=== PATIENT | female | born 1995 | race Caucasian/White ===

== ENCOUNTER → 2017-12-22 13:15 | Outpatient (REF) | payer MEDICAID, SELFPAY | LOC: LBN 13:15 | PROVIDERS: PCP Family Medicine; Visit Provider Midwife | DX: Z34.83 Encounter for supervision of other normal pregnancy, third trimester (principal); Z36.85 Encounter for antenatal screening for Streptococcus B | CPT/HCPCS: 87081 ==

== ENCOUNTER 2018-01-11 13:10 | Inpatient (IN) | payer MEDICAID, SELFPAY ==
[2018-01-11 17:10] LABS: HCT 36.3 % (36.0-46.0); HGB 12.3 g/dL (12.0-15.5); Mean Corp. HGB Concentration 33.9 g/dL (32.0-36.0); Mean Corpuscular Hemoglobin 28.7 pg (27.0-33.0); Mean Corpuscular Volume 84.8 fL (80-95); Mean Platelet Volume 10.3 fL (8.0-11.0); Platelet Count 207 x1000/uL (130-400); RBC 4.28 m/cumm (4.00-5.20); RBC Distribution Width 13.6 % (11.7-14.6); White Blood Cell Count 14.72 k/cumm (4.4-10.8)
[2018-01-11] MEDS: Bupivacaine 0.25% Pres-Free 10 ML VIAL EP (19:15)
[2018-01-11] MEDS: fentaNYL 100 MCG/2 ML VIAL EP (19:15)
[2018-01-12] MEDS: Ibuprofen 600 MG TAB PO ×2 (05:45→21:34)
[2018-01-12 09:14] LABS: HCT 34.1 % (36.0-46.0); HGB 11.5 g/dL (12.0-15.5); Mean Corp. HGB Concentration 33.7 g/dL (32.0-36.0); Mean Corpuscular Hemoglobin 29.2 pg (27.0-33.0); Mean Corpuscular Volume 86.5 fL (80-95); Mean Platelet Volume 10.5 fL (8.0-11.0); Platelet Count 196 x1000/uL (130-400); RBC 3.94 m/cumm (4.00-5.20); RBC Distribution Width 13.5 % (11.7-14.6)
== END 2018-01-13 09:05 | disposition home or self-care (01) | DRG 775 ==
PROVIDERS: Admitting Provider Midwife; PCP Family Medicine; Visit Provider Midwife
DX: O69.2XX0 Labor and delivery complicated by other cord entanglement, with compression, not applicable or unspecified (principal); Z37.0 Single live birth; Z3A.39 39 weeks gestation of pregnancy
CPT/HCPCS: 36415; 85027; 86850; 86900; 86901; G0378; J3010

== ENCOUNTER 2018-04-13 17:14 | Emergency (ER) | payer MEDICAID, SELFPAY ==
[2018-04-13 17:21] VITALS: BP 113/67; PULSE 80; RESP 16; TEMP 36.6; O2SAT 98
[2018-04-13] MEDS: predniSONE 20 MG TAB 40 MG PO (17:34)
[2018-04-13] MEDS: diphenhydrAMINE 25 MG CAP 50 MG PO (17:34)
--- NOTE | 2018-04-13 18:01 | ED.GENADUL_ITS ---
Discharge Plan Disposition Patient Disposition: HOME Condition: Fair Discharge Details Chief Complaint: Allergic Clinical Impression: Allergic reaction Reason For Visit: HIVES Primary Care Provider: Jay Taylor ED Provider: Qian Escalante Home Meds and New Rx's Prescriptions: New prednisone 20 mg tablet 40 mg PO DAILY Qty: 8 RF: 0 Continue mometasone [Nasonex] 17 GM spray,non-aerosol 17 gm NS QAM Qty: 1 RF: 0 diphenhydramine HCl [Benadryl] 25 mg Capsule 50 mg PO PRN PRNRF: 0 Discharge Instructions Instructions: General Allergic Reaction (ED) Additional Instructions: Encourage hydration. Prednisone as prescribed. You are given a dose tonight and are not due for another 24 hours. Even if symptoms improve, patient is doing entire course of steroids. You may continue with Benadryl tablet symptomatic management. May also use hydrocortisone cream to help with itch. If you develop shortness of breath, wheezing, difficulty breathing, intraoral rash or other new/worsening symptoms please seek care urgently once again. Otherwise, please follow-up with primary care in the next few days if symptoms have not completely resolved Referrals: Jay Taylor [Primary Care Provider] - Discharge Data Discharge Date/Time-TO BE ENTERED AT DEPARTURE: 04/13/18 18:58 Medical Decision Making Patient 22-year-old female presents today with chief complaint of allergic reaction. She reports that last night she tried a new type of protein bar. States that since then she has had intermittent hives. States that Benadryl has been helping with symptom medic management that once the Benadryl wears off , symptoms quickly return. States that initially the hives are located on the upper extremities but have been spreading. On exam, I am able to see hives, intermittently on her face, upper extremities, thighs and abdomen. Chest is clear. Lungs are clear. She denies any shortness of breath, difficulty breathing. No wheezes rales or rhonchi on exam. No intraoral lesions. Patient will be started on Benadryl and prednisone. Patient has 3 months status post vaginal delivery, no complications in the period. She is no longer breast-feeding. Denies any GI upset, no nausea, vomiting or diarrhea. No abdominal discomfort. No fevers or chills. Patient diagnosed with allergic reaction, started on prednisone here. She will continue on prednisone burst. We discussed possible side effects associated with steroids. We discussed new/worsening symptoms and when to seek care urgently once again. Advise follow-up with primary care in the next few days if symptoms have not improved. I advised that she may continue with the Benadryl and/or hydrocortisone cream to help with symptomatic management. All of her questions and concerns were addressed and she is in agreement this plan. Patient given first dose while here, tolerated meds well. Improved. HPI General Mode of arrival: ambulatory . Date/Time Provider Initiated Documentation: 04/13/18 17:16 . Limitations to Documentation: no limitations . Information obtained by: patient . History of Present Illness 22 year old F presents to the emergency department with the chief complaint of hives, described as moderate, and is localized to the face, abdomen, left, right, upper extremity and lower extremity. Patient reports no radiation. Patient started experiencing this day(s) (1) and it has been intermittent. other things that improve symptom(s), (benadryl) No exacerbating factors reported . Patient notes rash; denies chest pain, cough, fever/chills, headaches, nausea/vomiting and shortness of breath. Patient did receive the following treatments prior to arrival, other (benadryl) Related Data Home Medications Medication Instructions Recorded Confirmed mometasone [Nasonex] 17 gm NS QAM #1 spray.pump 07/29/15 06/20/16 diphenhydramine HCl [Benadryl] 50 mg PO PRN PRN 04/13/18 04/13/18 prednisone 40 mg PO DAILY #8 tab 04/13/18 Previous Rx's Medication Instructions Recorded mometasone [Nasonex] 17 gm NS QAM #1 spray.pump 07/29/15 prednisone 40 mg PO DAILY #8 tab 04/13/18 Allergies Allergy/AdvReac Type Severity Reaction Status Date / Time codeine Allergy Severe Anaphylaxsi Unverified 04/13/18 17:25 s General Stated Complaint: Allergic LAWRENCE: 3 Review of Systems Constitutional Reports as per HPI and Denies headache(s) Eyes Reports as per HPI, Denies eye discharge and Denies irritation ENT Denies headache(s) Cardiovascular Reports as per HPI, Denies chest pain and Denies dyspnea Respiratory Denies cough, Denies dyspnea, Denies stridor and Denies wheezing Gastrointestinal Reports as per HPI, Denies abdominal pain, Denies change in bowel habits, Denies nausea and Denies vomiting Integumentary/Breasts Reports as per HPI and Reports pruritus Neurologic Denies headache(s) Allergic/Immunologic Denies wheezing PFSH Family History Mother Diabetes Alcohol abuse Brother Asthma Tonsillectomy Family History Mother Diabetes Alcohol abuse Brother Asthma Social History Smoking/Tobacco Use Status: Current every day Surgical History Tonsillectomy Social History Smoking/Tobacco Use Status: Current every day Exam Const General: cooperative, healthy appearing, comfortable, no acute distress, well developed and well groomed Nutritional Appearance: average body habitus and well nourished Orientation: alert and awake HENNY Head: normal to inspection, normocephalic and atraumatic Ears: hearing grossly normal bilaterally General nose exam: external nose normal and nares normal Face and sinus: face symmetric and no other (patient has urticarial rash on cheeks) Mouth: oral mucosae normal, lip normal, tongue normal, oropharynx normal and moist mucous membranes Teeth and gingiva: dentition normal Throat: posterior oropharynx normal, tonsils normal and uvula midline Eyes General: appearance normal, both eyes and all related structures Neck Neck: normal visual inspection, full ROM, no lymphadenopathy and no meningeal signs Chest Chest: normal inspection of the chest Resp Effort & Inspection: normal respiratory effort, able to speak in complete sentences and no respiratory distress Auscultation: clear to auscultation bilaterally, no rales, no rhonchi and no wheezes Cardio Rate: regular rate Rhythm: regular rhythm Heart Sounds: S1 normal and S2 normal GI Inspection: abnormal to inspection (urticarial rash anterior abdomen) Palpation: soft, no hepatosplenomegaly and nontender Auscultation: normal bowel sounds Back/Spine/Pelvis Thoracic/Lumbar Spine: thoracic and lumbar spine normal to inspection Skin Rashes: rashes noted (patient has hives to bilateral upper extremities, proximal to the elbows. This same rash is also noted on abdomen. Chest is clear. ) Neuro General: alert and awake Cognition: normal cognition Speech: speech normal Gait: normal gait Extrem General: abnormal to inspection (as above) Psych Appearance: grossly normal and well kempt Mental Status: mental status grossly normal Speech and Movement: speech and movement normal Course Vital Signs Temperature 36.6 C 04/13/18 17:21 Pulse 80 04/13/18 17:21 Respiratory Rate 16 04/13/18 17:21 Blood Pressure 113/67 04/13/18 17:21 Pulse Oximetry 98 04/13/18 17:21 Temperature 36.6 C 04/13/18 17:21 Temperature Source Temporal Artery Scan 04/13/18 17:21 Pulse 80 04/13/18 17:21 Respiratory Rate 16 04/13/18 17:21 Respiratory Effort 04/13/18 17:28 Respiratory Pattern Normal 04/13/18 17:28 Blood Pressure 113/67 04/13/18 17:21 Pulse Oximetry 98 04/13/18 17:21 Oxygen Delivery Method Room Air 04/13/18 17:21 Oxygen Flow Rate 0 04/13/18 17:21
[2018-04-13 18:55] VITALS: BP 115/67; PULSE 71; RESP 16; O2SAT 97
== END 2018-04-13 18:58 | disposition home or self-care (01) ==
LOC: ER 18:14
PROVIDERS: Emergency Provider Physician Assistant; PCP Family Medicine
DX: T78.1XXA Other adverse food reactions, not elsewhere classified, initial encounter (principal); L50.0 Allergic urticaria
CPT/HCPCS: 99283; J7512

== ENCOUNTER 2018-07-21 14:26 | Outpatient (REF) | payer MEDICAID, SELFPAY ==
--- NOTE | 2018-07-21 13:10 | PAPFT_PTH ---
PATIENT: Stacey Barnes LOC: [facility] U#:[id number] AGE/SX: 22/F ROOM: RE07/21/[address]: Karen Wilcox NP : 1995 BED: DIS: 07/21/2018 SPEC #: [id number] RECD: 07/21/18 16:44 STATUS: NANO JUAREZ #: [id number] SANDRA: 07/21/18 13:[address]: Karen Wilcox NP DEPT: [facility] Cytology RECD BY: Kane Rosenthal ENTERED: 07/21/18 16:44 SP TYPE: PAPFT OTHR DR: Jay Taylor Tissues: 1 - CX/ENDOCX FOR PAP SMEARS Procedures: PAP THIN PREP/UVM Screening HPV DNA PROBE Comments: [id number]
== END 2018-07-21 14:46 ==
LOC: LBN 14:26
PROVIDERS: PCP Family Medicine; Visit Provider Nurse Practitioner Women's Health
DX: Z12.4 Encounter for screening for malignant neoplasm of cervix (principal)
CPT/HCPCS: 88142; 87624

== ENCOUNTER 2019-04-20 14:42 | Outpatient (REF) | payer MEDICAID, SELFPAY ==
[2019-04-21 15:16] LABS: Chlamydia Result Negative (Negative)
[2019-04-25 11:33] LABS: GC Result Negative (Negative)
== END 2019-04-20 15:02 ==
LOC: LBN 14:42
PROVIDERS: PCP Family Medicine; Visit Provider Nurse Practitioner Family
DX: Z11.3 Encounter for screening for infections with a predominantly sexual mode of transmission (principal)
CPT/HCPCS: 87491; 87591

== ENCOUNTER 2019-08-14 14:20 | Outpatient (REF) | payer MEDICAID, SELFPAY ==
--- NOTE | 2019-08-14 13:00 | PAPFT_PTH ---
PATIENT: Stacey Barnes LOC: [facility] U#:[id number] AGE/SX: 24/F ROOM: RE08/14/[address]: MYLES Farrar : 1995 BED: DIS: 08/14/2019 SPEC #: [id number] RECD: 08/14/19 17:07 STATUS: NANO JUAREZ #: [id number] SANDRA: 08/14/19 13:[address]: Jaylene Villasenor DEPT: [facility] Cytology RECD BY: Karne Wilson ENTERED: 08/14/19 17:07 SP TYPE: PAPFT OTHR DR: Jay Taylor Tissues: 1 - CX/ENDOCX FOR PAP SMEARS Procedures: PAP THIN PREP/UVM Screening Comments: [id number]
== END 2019-08-14 14:40 ==
LOC: LBN 14:20
PROVIDERS: PCP Family Medicine; Visit Provider Nurse Practitioner Family
DX: Z12.4 Encounter for screening for malignant neoplasm of cervix (principal)
CPT/HCPCS: 88142

== ENCOUNTER 2020-01-08 15:18 | Outpatient (REF) | payer MEDICAID, SELFPAY ==
[2020-01-08 19:19] LABS: HGB 14.2 g/dL (11.2-15.7); MCH 28.8 pg (27.0-33.0); MCHC 33.8 % (32.0-36.0); MCV 85.2 fL (80-95); Platelet Count 235 10^3/uL (130-400); RBC 4.93 10^6/uL (3.93-5.22); RDW 12.8 % (11.7-14.6); RDW-SD 39.8 fL
[2020-01-08 19:42] LABS: ALT 17 U/L (14-59); AST 13 U/L (15-37); Albumin 4.1 g/dL (3.4-5.0); Alkaline Phosphatase 68 U/L (46-116); Anion Gap 10.5 mmol/L (3-11); BUN 10 mg/dL (7-18); Bilirubin, Total 0.3 mg/dL (0.2-1.0); CO2 23.5 mmol/L (21.0-32.0); CREATININE 0.75 mg/dL (0.55-1.02); Calcium 9.2 mg/dL (8.5-10.1); Chloride 105 mmol/L (98-107); Glucose 88 mg/dL (74-106); Potassium 4.1 mmol/L (3.5-5.1); Sodium 139 mmol/L (136-145); TSH (W/Ref FT4) 1.03 uIU/mL (0.36-3.74); Total Protein 6.9 g/dL (6.4-8.2)
== END 2020-01-08 15:38 ==
LOC: NCHCN 15:18
PROVIDERS: PCP Family Medicine; Visit Provider Nurse Practitioner
DX: R63.4 Abnormal weight loss (principal); I95.9 Hypotension, unspecified
CPT/HCPCS: 80053; 85027; 84443

== ENCOUNTER 2020-02-13 14:56 | Outpatient (REF) | payer MEDICAID, SELFPAY ==
[2020-02-14 15:16] LABS: Chlamydia Result Negative (Negative); GC Result Negative (Negative)
== END 2020-02-13 15:16 ==
LOC: LBN 14:56
PROVIDERS: PCP Family Medicine; Visit Provider Nurse Practitioner Family
DX: Z11.3 Encounter for screening for infections with a predominantly sexual mode of transmission (principal)
CPT/HCPCS: 87491; 87591

== ENCOUNTER 2021-01-18 05:31 | Emergency (ER) | payer MEDICAID, SELFPAY ==
--- NOTE | 2021-01-18 05:34 | ED.GENADUL_ITS ---
Discharge Plan Disposition Patient Disposition: HOME Condition: Good Discharge Details Clinical Impression: Dental infection Primary Care Provider: Jay Taylor ED Provider: Chaim Small Redkey Meds and New Rx's Prescriptions: New amoxicillin 500 mg capsule 500 mg PO Q8H Qty: 30 RF: 0 Continued mometasone [Nasonex] 50 mcg/actuation spray,non-aerosol 1 spray NS QAM PRN (Reason: allergy symptoms) RF: 0 Discharge Instructions Instructions: Dental Abscess (ED) Additional Instructions: Take antibiotic as directed and follow-up with dentist next week. Alternate ibuprofen with acetaminophen as we discussed. May use benzocaine gel as directed every 3-4 hours to help with pain. Return to ED for increased facial pain/swelling/redness, difficulty breathing, inability to swallow. Medical Decision Making Patient with onset of dental pain involving the right upper molar region. She has a large cavity present and has a focal percussion tenderness. We will continue amoxicillin. We will also have her continue ibuprofen and acetaminophen. Short-term 20% benzocaine applied to the gumline above the tooth should help with her pain. Follow-up with dentist next week. Return to ED for increasing facial pain/swelling/redness, difficulty breathing, inability to swa llow, other concerns. HPI General Mode of arrival: ambulatory . Date/Time Provider Initiated Documentation: 01/18/21 05:33 . Limitations to Documentation: no limitations . Information obtained by: patient and RN notes reviewed . HPI Narrative: Patient presents to ED with onset of right upper dental pain early this morning. Patient has had dental problems in the past. In fact, she is due for surgery next month in the left upper teeth. She did take a dose of amoxicillin as well as Motrin before coming in. Still has significant pain. Denies fever. [place] fine before going to bed. Has no difficulty breathing or swallowing. Related Data Home Medications Medication Instructions Recorded Confirmed mometasone 50 mcg/actuation nasal 1 spray NS QAM PRN gm 04/20/19 01/18/21 spray amoxicillin 500 mg PO Q8H #30 cap 01/18/21 Previous Rx's Medication Instructions Recorded amoxicillin 500 mg PO Q8H #30 cap 01/18/21 Allergies Allergy/AdvReac Type Severity Reaction Status Date / Time codeine Allergy Severe Anaphylaxsi Verified 01/18/21 05:43 s General LAWRENCE: 3 Review of Systems Narrative: As documented in HPI otherwise negative as below. Const: no fever, chills, weakness Resp: no cough, SOB, pleuritic pain CV: no CP, diaphoresis, edema, syncope GI: no abdominal pain, nausea, vomiting, diarrhea Neuro: no headache, numbness, focal weakness, confusion [facility] Medical History No significant past medical history Surgical History Tonsillectomy age 15 Family History Mother Diabetes Alcohol abuse Brother Asthma Social History Smoking/Tobacco Use Status: Current every day Tobacco Type: cigarettes Tobacco: How many years used: 9 Quit status: has quit before Second Hand Exposure: Yes Smoking risk assessment performed?: Yes Alcohol Intake: never Drug use: Never Substance use type: does not use Seatbelt use: always Do you feel safe at home: Yes Do you feel safe in your relationship?: Yes Female Reproductive History Menstrual control method: other ( has vasectomy) History History 4 Para 3 Hx # Term Pregnancies 3 Multiple births Hx # Pregnancies Ectopic pregnancies AB induced Hx Number of Living Children AB spontaneous 1 Exam Narrative Exam Narrative: Const: WDWN female in NAD. HEENT: NC/AT. Normal facial exam. Large cavity first upper right molar with apical percussion tenderness present. No gingival or oral abscess noted. Eyes: Normal conjunctiva and sclera. Neck: Supple. Trachea midline. Lungs: Normal respiratory effort. Neuro: A+O x 3. Normal speech, mentation, gait. Cranial nerves II - XII grossly intact. No gross motor or sensory deficit. Skin: Warm and dry without erythema.
[2021-01-18 05:36] VITALS: BP 119/72; PULSE 67; RESP 18; TEMP 36.8; O2SAT 97
[2021-01-18] MEDS: Benzocaine 20% Gel 30 GM JAR MM (05:51)
== END 2021-01-18 06:02 | disposition home or self-care (01) ==
PROVIDERS: Emergency Provider Emergency Medicine; PCP Family Medicine
DX: K04.7 Periapical abscess without sinus (principal)
CPT/HCPCS: 99283

== ENCOUNTER 2021-08-21 11:23 | Outpatient (REF) | payer MEDICAID, SELFPAY ==
--- NOTE | 2021-08-21 10:30 | PAPFT_PTH ---
PATIENT: Stacey Barnes LOC: [facility] U#:[id number] AGE/SX: 26/F ROOM: RE08/21/[address]: MYLES Farrar : 1995 BED: DIS: 08/21/2021 SPEC #: [id number] RECD: 08/21/21 12:53 STATUS: NANO REQ #: [id number] SANDRA: 08/21/21 10:[address]: Jaylene Villasenor DEPT: [facility] Cytology RECD BY: Karen Wilson ENTERED: 08/21/21 12:53 SP TYPE: PAPFT OTHR DR: Jay Taylor Tissues: 1 - CX/ENDOCX FOR PAP SMEARS Procedures: PAP THIN PREP/UVM Screening HPV DNA PROBE Comments: [id number]
[2021-08-23 13:46] LABS: Chlamydia Result Negative (Negative); GC Result Negative (Negative)
== END 2021-08-21 11:24 | disposition home or self-care (01) ==
LOC: LBN 11:23
PROVIDERS: PCP Family Medicine; Visit Provider Nurse Practitioner Family
DX: Z11.3 Encounter for screening for infections with a predominantly sexual mode of transmission (principal); Z12.4 Encounter for screening for malignant neoplasm of cervix; R87.610 Atypical squamous cells of undetermined significance on cytologic smear of cervix (ASC-US); R87.810 Cervical high risk human papillomavirus (HPV) DNA test positive; Z11.51 Encounter for screening for human papillomavirus (HPV)
CPT/HCPCS: 87491; 87591; 88142; 87624

== ENCOUNTER 2021-09-25 12:27 | Outpatient (REF) | payer MEDICAID, SELFPAY ==
--- NOTE | 2021-09-25 11:30 | ENDO_PTH ---
PATIENT: Stacey Barnes LOC: [facility] U#:[id number] AGE/SX: 26/F ROOM: RE09/25/[address]: Gricelda Myers DO : 1995 BED: DIS: 09/25/2021 SPEC #: [id number] RECD: 09/25/21 12:57 STATUS: NANO RE #: [id number] SANDRA: 09/25/21 11:[address]: Gricelda Myers DEPT: Surgical [facility]imen RECD BY: Karen Wilson ENTERED: 09/25/21 12:57 SP TYPE: Endo OTHR DR: Jay Taylor Tissues: 1 - ENDOCERVICAL BX/CURRETTE 2 - CERVICAL BIOPSY Procedures: GROSS AND MICRO LEVEL 4 Comments: [id number]
== END 2021-09-25 12:28 | disposition home or self-care (01) ==
LOC: LBN 12:27
PROVIDERS: PCP Family Medicine; Visit Provider Obstetrics & Gynecology
DX: N72 Inflammatory disease of cervix uteri (principal); N88.8 Other specified noninflammatory disorders of cervix uteri; R87.610 Atypical squamous cells of undetermined significance on cytologic smear of cervix (ASC-US); R87.810 Cervical high risk human papillomavirus (HPV) DNA test positive
CPT/HCPCS: 88305

== ENCOUNTER 2022-09-09 11:18 | Outpatient (REF) | payer MEDICAID, SELFPAY ==
--- NOTE | 2022-09-09 11:10 | PAPFT_PTH ---
PATIENT: Stacey Barnes LOC: [facility] U#:[id number] AGE/SX: 27/F ROOM: RE09/09/[address]: Gricelda Myers DO : 1995 BED: DIS: 09/09/2022 SPEC #: [id number] RECD: 09/09/22 12:56 STATUS: NANO REQ #: [id number] SANDRA: 09/09/22 11:[address]: Gricelda Myers DEPT: [facility] Cytology RECD BY: Karen Wilson ENTERED: 09/09/22 12:56 SP TYPE: PAPFT OTHR DR: Jay Taylor Tissues: 1 - CX/ENDOCX FOR PAP SMEARS Procedures: PAP THIN PREP/UVM Screening HPV DNA PROBE Comments: [id number]
== END 2022-09-09 11:19 | disposition home or self-care (01) ==
LOC: LBN 11:18
PROVIDERS: PCP Family Medicine; Visit Provider Obstetrics & Gynecology
DX: Z12.4 Encounter for screening for malignant neoplasm of cervix (principal); Z11.51 Encounter for screening for human papillomavirus (HPV); R87.810 Cervical high risk human papillomavirus (HPV) DNA test positive
CPT/HCPCS: 88142; 87624

== ENCOUNTER 2022-10-26 07:22 | Emergency (ER) | payer MEDICAID, SELFPAY ==
[2022-10-26 07:27] VITALS: BP 117/69; PULSE 61; RESP 16; TEMP 36.9; O2SAT 99
--- NOTE | 2022-10-26 07:38 | ED.GENADUL_ITS ---
Discharge Plan Disposition Patient Disposition: Home Condition: Stable Discharge Details Clinical Impression: Dental infection Primary Care Provider: Jay Taylor ED Provider: Gerardo Wilcox Home Meds and New Rx's Prescriptions: New amoxicillin 500 mg tablet 500 mg PO BID Qty: 20 0RF Continued mometasone [Nasonex] 50 mcg/actuation spray,non-aerosol 1 spray NS QAM PRN (Reason: allergy symptoms) Rx Instructions: 2 sprays each nostril once daily Discharge Instructions Additional Instructions: You can take 1000mg tylenol and 600mg ibuprofen every 6 hours as needed follow up with a dentist as soon as possible If you have fevers, inability to swallow liquids or feel more ill return to the emergency department Medical Decision Making 27 yo female who denies significant pmhx comes in with right upper posterior molar pain for 3 days. Denies fevers, dyspnea, difficulty swallowing. States has had issues with this tooth before due to having an erosion. She arrives stable and appears well in no distress. She is swallowing and breathing normally. No submandibular swelling, no facial swelling, normal posterior pharynx with midline uvula, no pain over the hyoid or restricted neck movements. She has an erosion on her right posterior upper molar, no visible abscess and is tender to percussion. No findings to suggest elier's retropharyngeal abscess, epiglotitis, peritonsilar abscess. Will start on amoxicillin and advised to f/u with dentist, return precautions given Differential Diagnosis Differential Diagnosis: pulpitis, dental caries, abscess HPI General Mode of arrival: ambulatory . Date/Time Provider Initiated Documentation: 10/26/22 07:32 . Limitations to Documentation: no limitations . Information obtained by: patient . History of Present Illness 27 year old F presents to the emergency department with the chief complaint of dental pain, described as moderate, Patient started experiencing this day(s) (3) and it has been constant. No relieving factors improve symptom(s), No exacerbating factors reported . Patient notes no other symptoms.. Related Data Home Medications Medication Instructions Recorded Confirmed mometasone 50 mcg/actuation nasal 1 spray NS QAM PRN allergy symptoms 04/20/19 01/18/21 spray (Nasonex) amoxicillin 500 mg tablet 500 mg PO BID #20 tabs 10/26/22 Previous Rx's Medication Instructions Recorded amoxicillin 500 mg tablet 500 mg PO BID #20 tabs 10/26/22 Allergies Allergy/AdvReac Type Severity Reaction Status Date / Time codeine Allergy Severe Anaphylaxsi Verified 10/26/22 07:30 s General Stated Complaint: DentalOral LAWRENCE: 4 Review of Systems All systems reviewed & are unremarkable except as noted in HPI and below Constitutional Constitutional: Denies chills, Denies fever(s) and Denies weakness ENT Ears, Nose, Mouth, and Throat: Denies change in voice Cardiovascular Cardiovascular: Denies chest pain and Denies dyspnea Respiratory Respiratory: Denies cough and Denies dyspnea Gastrointestinal Gastrointestinal: Denies abdominal pain, Denies nausea and Denies vomiting Musculoskeletal Musculoskeletal: Denies joint swelling Neurologic Neurologic: Denies weakness PFSH All Active Problems (Updated 10/26/22 @ 07:54 by Gerardo Wilcox MD) Well woman exam with routine gynecological exam (Acute) ASCUS with positive high risk HPV (Acute) Colpo 09/28, negative Pap 09/29. Dental infection (Acute) Medical History No significant past medical history Surgical History Tonsillectomy age 15 Family History Mother Diabetes Alcohol abuse Brother Asthma Social History Smoking/Tobacco Use Status: Current every day Tobacco Type: cigarettes Tobacco: How many years used: 9 Quit status: has quit before Second Hand Exposure: Yes Smoking risk assessment performed?: Yes Alcohol Intake: current Alcohol Intake frequency: holidays/special occasions only Drug use: Daily Substance use type: marijuana Seatbelt use: always Do you feel safe at home: Yes Do you feel safe in your relationship?: Yes Female Reproductive History Menstrual control method: other ( has vasectomy) History History 4 Para 3 Hx # Term Pregnancies 3 Multiple births Hx # Pregnancies Ectopic pregnancies AB induced Hx Number of Living Children AB spontaneous 1 Exam Const General: no acute distress Orientation: alert HENMT Head: normal to inspection Ears: external ears normal General nose exam: external nose normal Mouth: moist mucous membranes Eyes General: appearance normal, both eyes and all related structures Neck Neck: normal visual inspection Resp Effort & Inspection: normal respiratory effort and able to speak in complete sentences Cardio Rate: regular rate Skin General skin exam: no rashes or lesions noted Neuro General: patient alert and patient oriented x3 Extrem General: normal to inspection Psych Mental Status: mental status grossly normal Course Vital Signs Vital signs: Vital Signs Temperature 36.9 C 10/26/22 07:27 Pulse 61 10/26/22 07:27 Respiratory Rate 16 10/26/22 07:27 Blood Pressure 117/69 10/26/22 07:27 Pulse Oximetry 99 10/26/22 07:27 Temperature 36.9 C 10/26/22 07:27 Temperature Source Temporal Artery Scan 10/26/22 07:27 Pulse 61 10/26/22 07:27 Respiratory Rate 16 10/26/22 07:27 Respiratory Effort Normal, Non-Labored 10/26/22 07:31 Blood Pressure 117/69 10/26/22 07:27 Blood Pressure Position Sitting 10/26/22 07:27 Pulse Oximetry 99 10/26/22 07:27 Oxygen Delivery Method Room Air 10/26/22 07:27 Oxygen Flow Rate 0 10/26/22 07:27
[2022-10-26] MEDS: Benzocaine 20% Gel 30 GM JAR MM (07:50)
[2022-10-26] MEDS: Amoxicillin 500 MG CAP PO (07:50)
== END 2022-10-26 08:01 | disposition home or self-care (01) ==
PROVIDERS: Emergency Provider Emergency Medicine; PCP Family Medicine
DX: K04.7 Periapical abscess without sinus (principal)
CPT/HCPCS: 99283; 99284

== ENCOUNTER 2022-11-04 19:32 | Emergency (ER) | payer MEDICAID, SELFPAY ==
[2022-11-04 19:39] VITALS: BP 121/71; PULSE 63; RESP 20; TEMP 36.2; O2SAT 100
--- NOTE | 2022-11-04 20:34 | ED.GENADUL_ITS ---
Discharge Plan Disposition Patient Disposition: Home Discharge Details Clinical Impression: Pain due to dental caries Primary Care Provider: Jay Taylor ED Provider: Mitra Smith Home Meds and New Rx's Prescriptions: Continued mometasone [Nasonex] 50 mcg/actuation spray,non-aerosol 1 spray NS QAM PRN (Reason: allergy symptoms) Rx Instructions: 2 sprays each nostril once daily amoxicillin 500 mg tablet 500 mg PO BID Qty: 20 0RF Discharge Instructions Instructions: Dental Caries (ED), Toothache (ED) Additional Instructions: Use the HurriCaine gel to 3 times daily as needed. Please take Tylenol or Ibuprofen with food every 4-6 hours as needed for pain and swelling. Finish the antibiotics as previously prescribed. You do still need to see a dentist. Follow up with primary care provider in 3-5 days. Return to ED sooner if any worsening or concerns. Increase oral fluids. Referrals: Jay Taylor [Primary Care Provider] - 5 days Medical Decision Making 27-year-old female presents to the ER with chief complaint of dental pain. Was seen a week ago and was placed on amoxicillin for same complaint was unable to get in with a dentist. She does have a plastic type veneer noted on her upper molars she does have an area of erosion in dental carry to her right upper molar, no surrounding abscess or drainage or area of fluctuance. No posterior oropharynx swelling or signs of infection. She is speaking in full sentences. She reports has been taking ibuprofen with little to no relief. She has 2 days left of the amoxicillin. Benzocaine HurriCaine gel applied with instructions on use. We will give dental resource list have patient follow-up with dentist. I do not feel that extending antibiotics is needed at this time. No evidence of abscess or area of fluctuance. Patient was given dental resources and home care. This text was generated using [employer]ation system, please disregard any oddities of phrase or misspellings. Medical Records Medical records reviewed: Yes I reviewed the patient's medical records. HPI General Mode of arrival: ambulatory . Date/Time Provider Initiated Documentation: 11/04/22 19:50 . Limitations to Documentation: no limitations . Information obtained by: patient, RN notes reviewed and old records reviewed . HPI Narrative: 27-year-old female presents to the ER with chief complaint of dental pain. Was seen a week ago and was placed on amoxicillin for same complaint was unable to get in with a dentist. She does have a plastic type veneer noted on her upper molars she does have an area of erosion in dental carry to her right upper molar, no surrounding abscess or drainage or area of fluctuance. No posterior oropharynx swelling or signs of infection. She is speaking in full sentences. She reports has been taking ibuprofen with little to no relief. She has 2 days left of the amoxicillin. Related Data Home Medications Medication Instructions Recorded Confirmed mometasone 50 mcg/actuation nasal 1 spray NS QAM PRN allergy symptoms 04/20/19 01/18/21 spray (Nasonex) amoxicillin 500 mg tablet 500 mg PO BID #20 tabs 10/26/22 Previous Rx's Medication Instructions Recorded amoxicillin 500 mg tablet 500 mg PO BID #20 tabs 10/26/22 Allergies Allergy/AdvReac Type Severity Reaction Status Date / Time codeine Allergy Severe Anaphylaxsi Verified 10/26/22 07:30 s General Stated Complaint: DentalOral LAWRENCE: 4 Review of Systems All systems reviewed & are unremarkable except as noted in HPI and below ENT Ears, Nose, Mouth, and Throat: Reports dental pain PFSH All Active Problems (Updated 11/04/22 @ 20:39 by Mitra Smith NP) Pain due to dental caries (Acute) Well woman exam with routine gynecological exam (Acute) ASCUS with positive high risk HPV (Acute) Colpo 09/28, negative Pap 09/29. Dental infection (Acute) Medical History No significant past medical history Surgical History Tonsillectomy age 15 Family History Mother Diabetes Alcohol abuse Brother Asthma Social History Smoking/Tobacco Use Status: Current every day Tobacco Type: cigarettes Tobacco: How many years used: 9 Quit status: has quit before Second Hand Exposure: Yes Smoking risk assessment performed?: Yes Alcohol Intake: current Alcohol Intake frequency: holidays/special occasions only Drug use: Daily Substance use type: marijuana Seatbelt use: always Do you feel safe at home: Yes Do you feel safe in your relationship?: Yes Female Reproductive History Menstrual control method: other ( has vasectomy) History History 4 Para 3 Hx # Term Pregnancies 3 Multiple births Hx # Pregnancies Ectopic pregnancies AB induced Hx Number of Living Children AB spontaneous 1 Exam HENMT Ears: external ears normal and TM's normal bilaterally Mouth: oral mucosae normal, lip normal and tongue normal Teeth and gingiva: caries and fair dentition Teeth image: 1. Dental carry noted Throat: posterior oropharynx normal, tonsils normal, uvula midline and tonsils absent Course Vital Signs Vital signs: Vital Signs Temperature 36.2 C L 11/04/22 19:39 Pulse 63 11/04/22 19:39 Respiratory Rate 20 11/04/22 19:39 Blood Pressure 121/71 11/04/22 19:39 Pulse Oximetry 100 11/04/22 19:39 Temperature 36.2 C L 11/04/22 19:39 Temperature Source Temporal Artery Scan 11/04/22 19:39 Pulse 63 11/04/22 19:39 Respiratory Rate 20 11/04/22 19:39 Blood Pressure 121/71 11/04/22 19:39 Blood Pressure Position Sitting 11/04/22 19:39 Pulse Oximetry 100 11/04/22 19:39 Oxygen Delivery Method Room Air 11/04/22 19:39 Oxygen Flow Rate 0 11/04/22 19:39 Pain Level 10 11/04/22 19:39
[2022-11-04] MEDS: Benzocaine 20% Gel 30 GM JAR MM (20:48)
== END 2022-11-04 20:56 | disposition home or self-care (01) ==
PROVIDERS: Emergency Provider Registered Nurse Emergency; PCP Family Medicine
DX: K02.9 Dental caries, unspecified (principal)
CPT/HCPCS: 99283

== ENCOUNTER 2023-03-11 09:47 | Outpatient (REF) | payer MEDICAID, SELFPAY ==
[2023-03-12 14:41] LABS: Chlamydia Result Negative (Negative); GC Result Negative (Negative)
== END 2023-03-11 09:48 | disposition home or self-care (01) ==
LOC: LBN 09:47
PROVIDERS: PCP Family Medicine; Visit Provider Advanced Practice Midwife
DX: N76.0 Acute vaginitis (principal)
CPT/HCPCS: 87491; 87591; 87480; 87510; 87660

== ENCOUNTER 2023-12-20 10:33 | Emergency (ER) | payer MEDICAID, SELFPAY ==
[2023-12-20 10:36] VITALS: BP 101/70; PULSE 76; RESP 16; TEMP 36.6; O2SAT 96
--- NOTE | 2023-12-20 11:05 | ED.GENADUL_ITS ---
Discharge Plan Disposition Patient Disposition: Home Condition: Stable Discharge Details Clinical Impression: Dental infection Primary Care Provider: Flaquita Bacon ED Provider: Jag Person Home Meds and New Rx's Prescriptions: New penicillin V potassium 500 mg tablet 500 mg PO QID Qty: 55 0RF ibuprofen 600 mg tablet 600 mg PO Q8H PRNQty: 60 0RF Discontinued mometasone [Nasonex] 50 mcg/actuation spray,non-aerosol 1 spray NS QAM PRN (Reason: allergy symptoms) Rx Instructions: 2 sprays each nostril once daily chlorhexidine gluconate 0.12 % mouthwash 15 ml mucous membrane BID Qty: 1200 0RF Rx Instructions: swish and spit 15ml 2x daily x10 days Discharge Instructions Instructions: Tooth Abscess ED Additional Instructions: Please take antibiotic as prescribed. Please take ibuprofen as prescribed. Please take acetaminophen (tylenol) - 650mg every 6 hours by mouth as needed for pain. Please follow-up with your dentist. Call today. Return to the ER immediately for any worsening or new concerning symptoms. Referrals: Flaquita Bacon, ARTIST'S REPRESENTATIVE [Primary Care Provider] - Discharge Data Discharge Date/Time-TO BE ENTERED AT DEPARTURE: 12/20/23 12:24 HPI General Mode of arrival: ambulatory . Date/Time Provider Initiated Documentation: 12/20/23 11:05 . Limitations to Documentation: no limitations . Information obtained by: patient . HPI Narrative: 8-year-old female here with recurrent dental infection left upper molar. No associated facial swelling. no fever. Related Data Home Medications ?Medication ?Instructions ?Recorded ?Confirmed ibuprofen 600 mg tablet 600 mg PO Q8H PRN #60 tabs 12/20/23 12/22/23 penicillin V potassium 500 mg 500 mg PO QID #55 tabs 12/20/23 12/22/23 tablet Previous Rx's ?Medication ?Instructions ?Recorded ibuprofen 600 mg tablet 600 mg PO Q8H PRN #60 tabs 12/20/23 penicillin V potassium 500 mg 500 mg PO QID #55 tabs 12/20/23 tablet Allergies Allergy/AdvReac Type Severity Reaction Status Date / Time codeine Allergy Severe Anaphylaxsi Verified 12/22/23 15:59 s General Stated Complaint: DentalOral LAWRENCE: 4 Review of Systems All systems reviewed & are unremarkable except as noted in HPI and below ENT Ears, Nose, Mouth, and Throat: Denies tongue swelling Allergic/Immunologic Allergic/Immunologic: Denies tongue swelling Exam HENMT Face and sinus: other (mild left cheek swelling) Teeth and gingiva: poor dentition and other (no palpable abscess, no fluctuance, no swelling) Throat: posterior oropharynx normal Eyes EOM: EOM intact bilaterally Neck Neck: normal visual inspection, no lymphadenopathy and trachea midline Cardio Rate: regular rate Rhythm: regular rhythm Course Vital Signs Vital signs: Vital Signs Temperature 36.6 C 12/20/23 10:36 Pulse 76 12/20/23 10:36 Respiratory Rate 16 12/20/23 10:36 Blood Pressure 101/70 12/20/23 10:36 Pulse Oximetry 96 12/20/23 10:36 Temperature 36.6 C 12/20/23 10:36 Pulse 76 12/20/23 10:36 Respiratory Rate 16 12/20/23 10:36 Respiratory Effort Normal 12/20/23 10:42 Blood Pressure 101/70 12/20/23 10:36 Pulse Oximetry 96 12/20/23 10:36 Pain Level 10 12/20/23 10:42 Medical Decision Making 28-year-old female here with recurrent dental infection left upper molar. Significant decay of the tooth. No palpable abscess amenable to drainage. Patient is afebrile. Plan to treat with periapical dental block bupivacaine, Tylenol and oxycodone here, penicillin. Patient will follow-up with her dentist. Usual and customary discharge instructions were reviewed. Quality:SDOH Health Related Social Needs: Health related social needs details N/A PFSH All Active Problems (Updated 12/20/23 @ 11:09 by Jag Person MD) Dental infection (Acute) Marital problem (Acute ~2022) Low back pain (Chronic) uses THC Nicotine use disorder (Chronic) Started at 13yo; 5-6 cigs/day; thinking about quitting ( has COPD) ASCUS with positive high risk HPV (Acute) [facility] PATIENT SITTER Colpo 09/28, negative Pap 09/29. Medical History (Updated 12/20/23 @ 11:09 by Jag Person MD) Dysthymic disorder h/o hydroxyzine & fluoxetine History of kidney stones Tinea versicolor chest--RX ketoconazole & resolved Chronic bronchitis Low blood pressure Screen for STD (sexually transmitted disease) Human papillomavirus Vaginal discharge Dental infection (~01/2021) History of ADHD Surgical History Tonsillectomy age 15 Family History (Updated 09/20/23 @ 09:58 by Flaquita Bacon NP) Mother Diabetes Alcohol abuse Brother Asthma Social History Smoking/Tobacco Use Status: Current every day Tobacco Type: cigarettes Tobacco: How many years used: 9 Quit status: considering quitting Second Hand Exposure: No Smoking risk assessment performed?: Yes Alcohol Intake: current Alcohol Intake frequency: holidays/special occasions only Drug use: Daily Substance use type: marijuana Adopted: No Caregiver/Support person: No Foster care: No Household members: family Housing: apartment Number of Children: 2 number of grandchildren: 0 Communication Needs: None Education Level: high school Do you need help understanding health information?: Rarely current occupation: Unemployed Pets and animals: Yes (1) Pets and animals: cat(s) Sexually active: Yes Do you think of yourself as: straight/heterosexual Current gender identity: female What is your relationship status?: How often do you talk on the phone with friends or family?: twice per week How often do you get together with friends or relatives?: once per week How often do you attend religion or mandaeism services?: decline to answer Do you belong to any clubs or organized social groups?: no Panel score (0-1 are the most socially isolated patients): 2 What type of physical activity do you participate in: regular exercise and advised to perform resistance training at least 2x/week Duration: 45-60 minutes/day Frequency: 5-6 times per week Special mike needs: No Seatbelt use: sometimes Helmet use: Yes Helmet use: never Drive intox or ride w/intox reach lift truck driver: No Do you feel safe at home: Yes Do you feel safe in your relationship?: Yes Female Reproductive History Menstrual control method: other ( has vasectomy) History History 4 Para 3 Hx # Term Pregnancies 3 Multiple births Hx # Pregnancies Ectopic pregnancies AB induced Hx Number of Living Children AB spontaneous 1
[2023-12-20] MEDS: Bupivacaine 0.5% Pres-Free 30 ML VIAL IJ (11:18)
[2023-12-20] MEDS: Benzocaine 20% Gel 30 GM JAR MM (11:22)
[2023-12-20] MEDS: Acetaminophen 325 MG TAB 650 MG PO (11:22)
[2023-12-20] MEDS: oxyCODONE 5 MG TAB PO (11:22)
[2023-12-20] MEDS: Penicillin V POTASSIUM 500 MG TAB PO (11:22)
== END 2023-12-20 12:24 | disposition home or self-care (01) ==
LOC: ER 11:09
PROVIDERS: Emergency Provider Student in an Organized Health Care Education/Training Program; PCP Nurse Practitioner Adult Health
DX: R68.84 Jaw pain (principal); K04.7 Periapical abscess without sinus
CPT/HCPCS: 64400; J0665

== ENCOUNTER 2024-01-04 11:20 | Outpatient (REF) | payer MEDICAID, SELFPAY ==
[2024-01-05 12:55] LABS: Chlamydia Result Negative (Negative); GC Result Negative (Negative)
== END 2024-01-04 11:21 | disposition home or self-care (01) ==
LOC: LBN 11:20
PROVIDERS: PCP Nurse Practitioner Adult Health; Visit Provider Nurse Practitioner
DX: N89.8 Other specified noninflammatory disorders of vagina (principal)
CPT/HCPCS: 87491; 87591; 87480; 87510; 87660

== ENCOUNTER 2024-02-11 00:39 | Outpatient (CLI) | payer MEDICAID, SELFPAY ==
--- OUTSIDE RECORDS SUMMARY | 2024-02-11 00:53 | XMS_ITS | Encounter Summary ---
Author Organization [facility] [place] [address] Care Team Providers Care Civilian Technician Name Role Phone None Primary Care Provider Unavailabl e Encounter Details Date Type Department Care Team (Latest Contact Info) Description 11/02/2023 Travel Social History Tobacco Use Types Packs/Day Years Used Date Smoking Tobacco: Every Day Cigarettes Smokeless Tobacco: Never Comments:Smokes marijuana as well. Sex and Gender Information Value Date Recorded Sex Assigned at Not on file Gender Identity Not on file Sexual Orientation Not on file documented as of this encounter Plan of Treatment Upcoming Encounters Date Type Department Care Team (Late st Contact Info) Description 05/08/2024 10:40 AM EST Office Visit Obstetrics [place] [address] Lucy Hussein APRN [facility] OBSTETRICS [place] [address] documented as of this encounter Visit Diagnoses Not on filedocumented in this encounter Care Teams Civilian Technician Relationship Specialty Start Date End Date None None PCP - General 07/06/23 documented as of this encounter
--- OUTSIDE RECORDS SUMMARY | 2024-02-11 00:53 | XMS_ITS | Encounter Summary ---
Author Organization [facility] [place] [address] Care Team Providers Care Lime Boiler Name Role Phone None Primary Care Provider Unavailabl e Encounter Details Date Type Department Care Team (Latest Contact Info) Description 07/27/2023 Travel Social History Tobacco Use Types Packs/Day [...] EST Office Visit Obstetrics [place] [address] Lucy Hussein APRN [facility] OBSTETRICS [place] [address] documented as of this encounter Visit Diagnoses Not on filedocumented in this encounter Care Teams Lime Boiler Relationship Specialty Start Date End Date None None PCP - General 07/06/23 documented as of this encounter
--- OUTSIDE RECORDS SUMMARY | 2024-02-11 00:53 | XMS_ITS | Encounter Summary ---
Author Organization [facility] Address [address] [place] [address] Care Team Providers Care Regional Sales Engineer Name Role Phone Emil Swain MD Primary Care Provider Jay Glez MD Primary Care Provider [phone] Encounter Details Date Type Department Care Team (Late st Contact Info) Description 02/13/2020 Lab Requisition [facility] Pathology & Laboratory Medicine - [address] [address] Outr Resulting Lab, Provider Social History Tobacco Use Types Packs/Day Years Used Date Smoking Tobacco: Never Assessed Interpersonal Safety Answer Date Record ed Physically Hurt Never 12/10/2019 Verbally Threaten Not on file 12/10/2019 Sex and Gender Information Value Date Recorded Sex Assigned at Not on file Gender Identity Not on file Sexual Orientation Not on file documented as of this encounter Plan of Treatment Not on file documented as of this encounter Procedures Procedure Name Priority Date/Time Associated Diagnosis Comments CHLAMYDIA/N. GONORRHOEAE AMPLIFIED NUCLEIC ACID Routine 02/13/2020 9:40 EDT documented in this encounter Results * CHLAMYDIA/N. GONORRHOEAE AMPLIFIED RNA (02/13/2020 9:40 EDT) Neisseria gonorrhoeae Result Negative Negative 02/14/2020 15:11 EDT [facility] Chlamydia trachomatis Result Negative Negative 02/14/2020 15:11 EDT [facility] Swab ENTIRE ENDOCERVIX / Unknown 02/13/2020 9:40 EDT 02/13/2020 21:19 EDT Provider Outr Resulting Lab MICROBIOLOGY - GENERAL ORDERABLES [facility] [address] [place] [address] documented in this encounter Visit Diagnoses Not on filedocumented in this encounter Care Teams Regional Sales Engineer Relationship Specialty Start Date End Date Emil Swain MD PCP - General 03/12/11 09/06/21 Jay Taylor MD [address] [place] [address] [place] [address] PCP - General 09/07/21 documented as of this encounter
--- OUTSIDE RECORDS SUMMARY | 2024-02-11 00:53 | XMS_ITS | Encounter Summary ---
Author Organization [facility] Address [address] [place] [address] Care Team Providers Care Manager Transmission Name Role Phone Emil Swain MD Primary Care Provider Jay Glez MD Primary Care Provider [phone] Encounter Details Date Type Department Care Team (Late st Contact Info) Description 08/22/2021 Lab Requisition [facility] Pathology & Laboratory Medicine - [address] [id number] Outr Resulting Lab, Provider Social History Tobacco [...] Comments CHLAMYDIA/N. GONORRHOEAE AMPLIFIED NUCLEIC ACID Routine 08/21/2021 10:30 EDT documented in this encounter Results * CHLAMYDIA/N. GONORRHOEAE AMPLIFIED RNA (08/21/2021 10:30 EDT) Neisseria gonorrhoeae Result Negative Negative 08/23/2021 13:41 EDT [facility] Chlamydia trachomatis Result Negative Negative 08/23/2021 13:41 EDT [facility] Swab ENTIRE ENDOCERVIX / Unknown 08/21/2021 10:30 EDT 08/22/2021 19:17 EDT Provider Outr Resulting Lab MICROBIOLOGY - GENERAL ORDERABLES [facility] [address] [place] [address] documented in this encounter Visit Diagnoses Not on filedocumented in this encounter Care Teams Manager Transmission Relationship Specialty Start Date End Date Emil Swain MD PCP - General 03/12/11 09/06/21 Jay Taylor MD [facility] [place] [address] PCP - General 09/07/21 documented as of this encounter
--- OUTSIDE RECORDS SUMMARY | 2024-02-11 00:53 | XMS_ITS | Encounter Summary ---
Author Organization [facility] [place] [address] Care Team Providers Care Needle Punch Machine Operator Name Role Phone None Primary Care Provider Unavailabl e Encounter Details Date Type Department Care Team (Latest Contact Info) Description 07/06/2023 Travel Social History Tobacco Use Types Packs/Day [...] EST Office Visit Obstetrics [place] [address] Lucy Hussein APRN [facility] OBSTETRICS [place] [address] documented as of this encounter Visit Diagnoses Not on filedocumented in this encounter Care Teams Needle Punch Machine Operator Relationship Specialty Start Date End Date None None PCP - General 07/06/23 documented as of this encounter
--- OUTSIDE RECORDS SUMMARY | 2024-02-11 00:53 | XMS_ITS | Encounter Summary ---
Author Organization [facility] Address [address] [place] [address] Care Team Providers Care Nursing Home Admissions Director Name Role Phone Emil Swain MD Primary Care Provider Unavailabl e Encounter Details Date Type Department Care Team (Latest Contact Info) Description 06/25/2017 16:37 EST - 06/25/2017 23:59 EST Hospital Encounter [address] [address] Unknown, ProviderMD Discharge Disposition: Home or Self Care Social History Tobacco Use Types Packs/Day Years Used Date Smoking Tobacco: Never Assessed Sex and Gender Information Value Date Recorded Sex Assigned at Not on file Gender Identity Not on file Sexual Orientation Not on file documented as of this encounter Discharge Disposition Disposition Code Departure Means Destination Home or Self [facility] documented in this encounter Plan of Treatment Not on file documented as of this encounter Visit Diagnoses Not on filedocumented in this encounter Care Teams Nursing Home Admissions Director Relationship Specialty Start Date End Date Emil Swain MD PCP - General 03/12/11 09/06/21 documented as of this encounter
--- OUTSIDE RECORDS SUMMARY | 2024-02-11 00:53 | XMS_ITS | Encounter Summary ---
Author Organization [facility] [place] [place] [address] Care Team Providers Care Dental Laboratory Technology Teacher Name Role Phone None Primary Care Provider Unavailabl e Reason for Visit * Reason Comments Colposcopy Encounter Details Date Type Department Care Team (Latest Contact Info) Description 11/02/2023 11:00 AM EDT Procedure visit Obstetrics and Gynecology at [facility] [place] [address] Mayra Calvo MD [facility] DR OBSTETRICS [place] [address] High grade squamous intraepithelial lesion (HGSIL), grade 3 HALLIE, on biopsy of cervix (Primary Dx) Social History Tobacco Use Types Packs/Day Years Used Date Smoking Tobacco: Every Day Cigarettes Smokeless Tobacco: Never Comments:Smokes marijuana as well. Sex and Gender Information Value Date Recorded Sex Assigned at Not on file Gender Identity Not on file Sexual Orientation Not on file documented as of this encounter Last Filed Vital Signs Vital Sign Reading Time Taken Comments Blood Pressure 115/80 11/02/2023 11:29 AM EDT Pulse 79 11/02/2023 11:29 AM EDT Temperature 35.8 ??C (96.5 ??F) 11/02/2023 11:29 AM E DT Respiratory Rate 18 11/02/2023 11:29 AM EDT Oxygen Saturation 100% 11/02/2023 11:29 AM EDT Inhaled Oxygen Concentration - - Weight - - Height - - Body Mass Index - - documented in this encounter Patient Instructions * Attachments The following attachments cannot be sent through Care Everywhere. * LEEP (Loop Electrosurgical Excision Procedure): Post-op (Lebanese) documented in this encounter Progress Notes * Mayra Calvo MD - 11/02/2023 11:00 AM EDTAssociated Order(s): Cervical Excision (Clinic/MSO) Images from the original note were not included. Stacey Barnes is a 28 y.o. P here for LEEP. Cervical cancer screening history includes: Cervical Cancer Screening History - Results and Follow-ups All results Result date Tests and Procedures Follow-ups 08/06/2023 (Order#[id number]) Colposcopy (Clinic/MSO) *Colposcopy: CIN3 Excision 07/06/2023 (Order#[id number]) Janitorial Supervisor Cytology Final Report *Pap Smear: ASC-H *HPV: HPV Other + INTERMODAL DISPATCHER CYTOLOGY FINAL REPORT: View Details in Report Colposcopy *Indicates a transcribed result H/o treatment: none She is using vasectomy for control. HPV vaccine: unsure Tobacco use: yes Immunocompromised: no Allergies Allergen Reactions Codeine Gold Salts GOLD Objective: BP 115/80 (BP Location (NBP): Right arm, Patient Position: Sitting, BP Cuff Sizes: Adult (25-34 cm)) Pulse 79 Temp 35.8 ??C (96.5 ??F) (Temporal) Resp 18 LMP 10/23/2023 (Within Days) SpO2 100% Gen: well-appearing, NAD Procedure Note Immediately prior to the start of the procedure, I confirmed the patient's identity, intended procedure, and insured that the proper equipment was present for the procedure. On exam, external genitalia normal. Vagina and cervix were without visible lesions on speculum exam. SCJ was completely visualized: yes Colposcopic evaluation using 5% acetic acid was completed. Acetowhite change was present: yes - circumferential with punctations. The cervix was completely visualized: yes and the lesion was completely visualized Yes OBGyn Exam At this time, appx 10 cc of 1%lidocaine with epinephrine was injected in a circumferential, subepithelial block around the ectocervix, several mm outside of the SCJ. A 20 x 12 mm loop was used to excise the entire transformation zone including the endocervix to a depth of appx 8 mm. An ECC was then performed. The ectocervical margin was then cauterized with the ball cautery another 2-3 mm to a depth of appx2 mm. A small amount of monsels solution was applied, although there was minimal bleeding evident. Cervical Excision (Clinic/MSO) Date/Time: 11/02/2023 12:01 PM Performed by: Mayra Calvo MD Authorized by: Mayra Calvo MD Labs/Pathology: Test none 1 # of LEEP specimens sent yes ECC sent Impression: High Grade Plan: Will contact patient with results via MyD-H. Verbal and written discharge instructions given. Mayra Calvo MD 11/02/2023 documented in this encounter Plan of Treatment Upcoming Encounters Date Type Department Care Team (Late st Contact Info) Description 05/08/2024 10:40 AM EST Office Visit Obstetrics [place] [address] Lucy Hussein APRN [facility] [address] OBSTETRICS [place] [address] documented as of this encounter Procedures Procedure Name Priority Date/Time Associated Diagnosis Comments SPECIMEN TO PATHOLOGY Routine 11/02/2023 12:04 PM EDT SPECIMEN TO PATHOLOGY Routine 11/02/2023 12:04 PM EDT SURGICAL PATHOLOGY REPORT Routine 11/02/2023 12:03 PM EDT COLPOSCOPY,CERVIX W/ADJ VAG,W/LOOP CONIZ PRFM Routine 11/02/2023 12:01 PM EDT High grade squamous intraepithelial lesion (HGSIL), grade 3 HALLIE, on biopsy of cervix documented in this encounter Results * Specimen to Pathology (11/02/2023 12:04 PM EDT) AP Specimen 11/02/2023 12:0 4 PM EDT 11/02/2023 12:04 PM EDT [facility] - 11/02/2023 12:04 PM EDT Specimen requisition ordered. ??Separate Pathology report to follow Mayra Calvo MD PATHOLOGY/CYTOLOGY ORDERABLES Performing Organization Address [facility] Co de Phone Number [facility] [place] [address] * Specimen to Pathology (11/02/2023 12:04 PM EDT) AP Specimen 11/02/2023 12:0 4 PM EDT 11/02/2023 12:04 PM EDT Narrative [facility] - 11/02/2023 12:04 PM EDT Specimen requisition ordered. ??Separate Pathology report to follow Mayra Calvo MD PATHOLOGY/CYTOLOGY ORDERABLES Performing Organization Address [facility] Co de Phone Number [facility] [place] [address] * Surgical Pathology Report (11/02/2023 12:03 PM EDT) Final Diagnosis [id number] ? Location: 5L The signing pathologist has (i) examined the relevant preparation(s) for the specimen(s) and (ii) rendered or confirmed the diagnosis(es). . ?Surgical Pathology DIAGNOSIS A - Cervix (LEEP): ??- Low-grade squamous intraepithelial lesion (LSIL/HALLIE 1) in a ?background of metaplastic squamous mucosa. ??- Margins are negative for intraepithelial lesions. B - Endocervix (curettage): ??- Fragments of benign endocervical glands. Electronically signed by: ?Carlos CROSS, Flaquita Garcia Verified: ??11/17/2023 7:38 ?? Pathologist Performed at: ??-[facility] Dept[facility] of [place]ology, [place] [address] Rat Culturist: Huyen Temple MD, FCAP, ??CLIA Certificate: [id number] ADDITIONAL STUDIES Deeper levels were examined on multiple blocks. SPECIMEN(S) SUBMITTED A - LEEP, LEEP (1) B - ECC, curetting (1) CLINICAL INFORMATION HALLIE 2/3 SPECIMEN PROCESSING A - Labeled/Fixative: LEEP, formalin. Quantity/Size: Single, 2.1 x 1.6 x 0.8 cm. Tissue Description: Intact LEEP. Orientation: Non-oriented. Mucosa: Centerview-white smooth to pink-red and slightly granular. Os: 1.3 x 0.1 cm, slitlike. Lesion: No gross lesion identified. Ink Designation: The margin is inked black and the endocervical edge is inked blue. Sections/Processin g: The specimen is radially sectioned and sequentially submitted. Entirely submitted in 14 cassettes labeled A1-A14. B - Labeled/Fixative: ECC, formalin. Quantity/Size: ??Multiple, 1.5 x 1.5 x 0.1 cm. Tissue Description: Mucus and admixed wispy pink tissue. Sections/Processin g: Submitted in toto in 1 cassette labeled B1. ??ajw 11/17/2023 7:38 AM EDT [facility] ENDOCERVICAL STRUCTURE / Unknown 11/02/2023 12:03 PM EDT 11/02/2023 12:03 PM EDT ENDOCERVICAL STRUCTURE / Unknown 11/02/2023 12:03 PM EDT 11/02/2023 12:03 PM EDT Mayra Calvo MD PATHOLOGY/CYTOLOGY ORDERABLES [facility] [place] [address] * COLPOSCOPY,CERVIX W/ADJ VAG,W/LOOP CONIZ PRFM (11/02/2023 12:01 PM EDT) Narrative Mayra Calvo MD - 11/02/2023 12:01 PM EDT Mayra Calvo MD ? 11/02/2023 12:05 PM Cervical Excision (Clinic/MSO) Date/Time: 11/02/2023 12:01 PM Performed by: Marya Calvo MD Authorized by: Mayra Calvo MD ?? Mayra Calvo MD OB GYNE ORDERABLES documented in this encounter Visit Diagnoses Diagnosis High grade squamous intraepithelial lesion (HGSIL), grade 3 HALLIE, on biopsy of cervix- Primary documented in this encounter Care Teams Dental Laboratory Technology Teacher Relationship Specialty Start Date End Date None None PCP - General 07/06/23 documented as of this encounter
--- OUTSIDE RECORDS SUMMARY | 2024-02-11 00:53 | XMS_ITS | Encounter Summary ---
Author Organization [facility] [place] [address] Care Team Providers Care Motor Racer Name Role Phone Lebron Campbell MD, Antolin Primary Care Provider [phone] Encounter Details Date Type Department Care Team (Late st Contact Info) Description 06/17/2023 Telephone Obstetrics [place] [address] Cristnia Hampton Social History Tobacco Use Types Packs/Day Years [...] EST Office Visit Obstetrics [place] [address] Lucy Hussein APRN [facility] OBSTETRICS [place] [address] documented as of this encounter Visit Diagnoses Not on filedocumented in this encounter Care Teams Motor Racer Relationship Specialty Start Date End Date Antolin Diana MD [address] [place] [address] [place] [address] PCP - General 04/01/10 07/05/23 documented as of this encounter
--- OUTSIDE RECORDS SUMMARY | 2024-02-11 00:53 | XMS_ITS | Encounter Summary ---
Author Organization [facility] Address [address] [place] [address] Care Team Providers Care Manager Integration Name Role Phone Jay Taylor MD Primary Care Provider [phone] Encounter Details Date Type Department Care Team (Late st Contact Info) Description 01/04/2024 Lab Requisition [facility] Pathology & Laboratory Medicine - [address] [address] Outr Resulting Lab, Provider Social History Tobacco [...] Comments CHLAMYDIA/N. GONORRHOEAE AMPLIFIED NUCLEIC ACID Routine 01/04/2024 11:00 EDT documented in this encounter Results * CHLAMYDIA/N. GONORRHOEAE AMPLIFIED NUCLEIC ACID (01/04/2024 11:00 EDT) Neisseria gonorrhoeae Result Negative Negative 01/05/2024 12:50 EDT [facility] Chlamydia trachomatis Result Negative Negative 01/05/2024 12:50 EDT [facility] Swab VAGINAL STRUCTURE / Unknown 01/04/2024 11:00 EDT 01/04/2024 22:02 EDT Provider Outr Resulting Lab MICROBIOLOGY - GENERAL ORDERABLES [facility] [address] [place] [address] documented in this encounter Visit Diagnoses Not on filedocumented in this encounter Care Teams Manager Integration Relationship Specialty Start Date End Date Jay Taylor MD [address] [place], [place] [id number] PCP - General 09/07/21 documented as of this encounter
--- OUTSIDE RECORDS SUMMARY | 2024-02-11 00:53 | XMS_ITS | Encounter Summary ---
Author Organization [facility] [place] [address] Care Team Providers Care Facilities Director Name Role Phone None Primary Care Provider Unavailabl e Encounter Details Date Type Department Care Team (Late st Contact Info) Description 08/06/2023 Orders Only Obstetrics [place] [phone] Nighat Espinal MD [facility] OBSTET[place]ICS [place] [address] Social History Tobacco Use Types Packs/Day Years [...] EST Office Visit Obstetrics [place] [phone] Lucy Hussein APRN [facility] OBSTET[place]ICS [place] [address] documented as of this encounter Procedures Procedure Name Priority Date/Time Associated Diagnosis Comments COLPOSCOPY (CLINIC/MSO) Routine 08/06/19 12:00 AM EDT documented in this encounter Results * Colposcopy (Clinic/MSO) (08/06/2023 12:00 AM EDT) Historical Provider MD KERI ESTEBAN ORDERABLE S documented in this encounter Visit Diagnoses Not on filedocumented in this encounter Care Teams Facilities Director Relationship Specialty Start Date End Date None None PCP - General 07/06/23 documented as of this encounter
--- OUTSIDE RECORDS SUMMARY | 2024-02-11 00:53 | XMS_ITS | Clinical Summary ---
Author Organization [facility] [place] [address] Care Team Providers Care Resident Services Supervisor Name Role Phone None Primary Care Provider Unavailabl e Allergies Active Allergy Reactions Criticality Noted Date Comments Codeine 04/20/2023 Gold Salts 04/20/2023 GOLD Medications No known medications Active Problems Problem Noted Date Diagnosed Date Atypical squamous cells dionte ot exclude high grade squamous intraepithelial lesion on cytologic smear of cervix (ASC-H) 07/27/2023 Social History Tobacco Use Types Packs/Day Years Used Date Smoking Tobacco: Every Day Cigarettes Smokeless Tobacco: Never Tobacco Cessation:Ready to Q uit: Not Asked; Counseling Given: Not Answered Comments:Smokes marijuana as well. Sex and Gender Information Value Date Recorded Sex Assigned at Not on file Gender Identity Not on file Sexual Orientation Not on file Last Filed Vital Signs Vital Sign Reading Time Taken Comments Blood Pressure 115/80 11/02/2023 11:29 AM EDT Pulse 79 11/02/2023 11:29 AM EDT Temperature 35.8 ??C (96.5 ??F) 11/02/2023 11:29 AM E DT Respiratory Rate 18 11/02/2023 11:29 AM EDT Oxygen Saturation 100% 11/02/2023 11:29 AM EDT Inhaled Oxygen Concentration - - Weight 64.4 kg (142 lb) 07/27/2023 11:05 AM EDT Height 160 cm (5' 3) 07/27/2023 11:05 AM EDT Body Mass Index 25.15 07/27/2023 11:05 AM EDT Plan of Treatment Upcoming Encounters Date Type Department Care Team (Late st Contact Info) Description 05/08/2024 10:40 AM EST Office Visit Obstetrics [place] [phone] Lucy Hussein APRN [facility] OBSTETRICS [place] [address] Health Maintenance Due Date Last Done Comments Pneumococcal Vaccine: At-Risk 5-64yrs (1 of 2 - PCV) 0 08/13/2001 Lipid Screening 08/13/2013 Hepatitis B vaccine (0-59 yrs) (1) 08/13/2014 Tetanus/Diphtheria/Pertussis Vaccines (1 - Tdap) 08/13 PAP Smear 01/04/2024 07/06/2023 Covid-19 Vaccine (1 - 2022-24 season) 2024 Influenza (Flu) vaccine (1 o f 1 - Influenza standard series) 01/09/2024 HPV test 08/13/2025 07/06/2023 HIV screen Completed 07/06/2023 Hepatitis C Screening Completed 07/06/2023 Procedures Procedure Name Priority Date/Time Associated Diagnosis Comments HIV SCREEN, 4TH GENERATION ([facility]/P/APD/[facility]) Routine 07/06/2023 10:49 AM EST Screening examination for STI HEPATITIS C ANTIBODY Routine 07/06/2023 10:49 AM EST Screening examination for STI HPV Routine 07/06/2023 9:00 AM EST FITNESS COORDINATOR CYTOLOGY FINAL REPORT Routine 07/06/2023 9:00 AM EST from Last 3 Months or Most Recently Relevant to Health Maintenance Results * Hepatitis C Antibody (07/06/2023 10:49 AM EST) Hepatitis C Antibody Negative Negative [facility] Blood 07/06/2023 10:4 9 AM EST 07/06/2023 10:54 AM EST Narrative Resulting Agency Comment Spec In Lab Tiffanie Gardiner CNM CHEMISTRY ORDERA BLES [facility] [address] [place] [address] * HIV Screen, 4th Generation ([facility]/CGP/APD/[facility]) (07/06/2023 10:49 AM EST) HIV Ab/Ag Screen Negative Negative [facility] Comment: This 4th Generation HIV test screens for the presence of the HIV-1 p24 antigen as well as antibodies reactive against HIV-1 and HIV-2. A negative screen does not rule out an acute HIV infection. If acute HIV infection is suspected, testing should be repeated in 2 - 3 weeks or HIV nucleic acid testing performed. HIV Comment Low Risk of HIV Infection [facility] Blood 07/06/2023 10:4 9 AM EST 07/06/2023 10:54 AM EST Narrative Resulting Agency Comment Spec In Lab Tiffanie Gardiner CNM CHEMISTRY ORDERA BLES Performing Organization Address [facility] [place] [address] * (ABNORMAL) HPV (07/06/2023 9:00 AM EST) HPV16 NEGATIVE NEGATIVE [facility] HPV 18 NEGATIVE NEGATIVE [facility] HPV Other HR POSITIVE(A) NEGATIVE [facility] HPV Interpretation See Comment [facility] Comment: POSITIVE for high-risk HPV* (High risk type other than types 16 or 18): ?? *Testing positive for high risk HPV means that the specimen is positive for high risk HPV DNA from at least one of the following 14 types tested: types 16, 18, 31, 33, 35, 39, 45, 51, 52, 56, 58, 59, 66, and 68. ?? Method: Phyllis gabriel HPV test (FDA-approved for clinical use) Specimen: HPV Testing - Cytology Liquid Based Prep This test is validated for cervical specimens only for use in cervical cancer screening. ??Other uses or specimen types are not validated/recommended.?? Cervical 07/06/2023 9:00 AM EST 07/06/2023 1:13 PM EST Narrative Resulting Agency Comment Spec In Lab Tiffanie Gardiner CNM PATHOLOGY/CYTOLO GY ORDERABLES Performing Organization Address City/[facility]/ZIP Co de Phone Number [facility] [place] [address] * Commanding Officer Garage Cytology Final Report (07/06/2023 9:00 AM EST) Commanding Officer Garage Cytology Final Report [id number] ? Location: 5L The signing pathologist has (i) examined the relevant preparation(s) for the specimen(s) and (ii) rendered or confirmed the diagnosis(es). . ? Commanding Officer Garage Final DIAGNOSIS Epithelial Cell Abnormality Atypical squamous cells cannot exclude a high-grade squamous intraepithelial lesion (ASC-H). Cells compatible with a low-grade squamous intraepithelial lesion (LSIL) also present. For consensus guidelines for the management of cervical cancer screening test results, please see: ?? http://www.asccp.o rg . Electronically signed by: ?Tim León MD Verified: ??07/16/2023 14:44 ??Pathologist Performed at: ??-[facility] Dept. of Pathology, [place] [address] Vice President Sales And Marketing: Huyen Temple MD, FCAP, ??CLIA Certificate: [id number] HPV RESULTS HPV16 (Result) ?Negative HPV18 (Result) ?Negative HPVOHR (Result) ? Positive * HPV (Interpretation) ?See Below HPV (Interpretation) Text: POSITIVE for high-risk HPV* (High risk type other than types 16 or 18): *Testing positive for high risk HPV means that the specimen is posi tive for high risk HPV DNA from at least one of the following 14 types tested: types 16, 18, 31, 33, 35, 39, 45, 51, 52, 56, 58, 59, 66, and 68. Method: Phyllis gabriel HPV test (FDA-approved for clinical use) Specimen: HPV Testing - Cytology Liquid Based Prep This test is validated for cervical specimens only for use in cervical cancer screening. ??Other uses or specimen types are not validated/rec ommended. The Phyllis gabriel ? HPV test was validated, performed and results reported through the [facility] Gen[facility] (CGAT) at [facility]. ? - Pantera Can, PhD, [facility], Director-[facility] STATEMENT OF ADEQUACY Specimen submitted is satisfactory. Endocervical component present. CLINICAL INFORMATION HPV Option: ?Concurrent HPV and Pap CT/NG Option: ?No Preparation: ? Liquid based Pap Specimen Source: ? Cervical/Endocervi rodrick LMP: ? Hysterectomy: ?No : ?No : ?No I.U.D.: ?No Pelvic Radiation: ?No . CLINICAL INFORMATION Hist Abnl Pap/Biopsy: ?Yes, history of previous abnormal Pap Prior FITNESS COORDINATOR Therapy: ? No Hist of HPV Vaccine: ? No ICD Diagnosis: ? Z12.4 Encounter for screening for malignant neoplasm of cervix Clinical Data, Significant Therapy and Clinical Impression ?? : ?_ This Pap Test has been evaluated with the assistance of the Celsionp Pap Test Imaging System. Note: The Pap test is a screening test for cervical cancer with an inherent false-negative rate dependent upon several variables. For further information please contact the [facility] Laboratory. Reference: Leticia BAUTISTA. Fabrication Technician of Pap Smear Results. In: Wilfrido BS, Andrew HH, ed. The Pap Smear. [place]: Cesar, 2002: 71-77. [facility] 07/06/2023 9:00 AM EST Tiffanie Gardiner CNM PATHOLOGY/CYTOLO GY ORDERABLES [facility] [place] [address] from Last 3 Months or Most Recently Relevant to Health Maintenance Care Teams Resident Services Supervisor Relationship Specialty Start Date End Date None None PCP - General 07/06/23
--- OUTSIDE RECORDS SUMMARY | 2024-02-11 00:53 | XMS_ITS | Encounter Summary ---
Author Organization [facility] Address [address] [place] [address] Care Team Providers Care Casino Host Name Role Phone Emil Swain MD Primary Care Provider Unavailabl e Encounter Details Date Type Department Care Team (Late st Contact Info) Description 06/25/2017 Results Only [facility] [phone] [place], [place] [id number] Social History Tobacco Use Types Packs/Day Years Used Date Smoking Tobacco: Never Assessed Sex and Gender Information Value Date Recorded Sex Assigned at Not on file Gender Identity Not on file Sexual Orientation Not on file documented as of this encounter Plan of Treatment Not on file documented as of this encounter Procedures Procedure Name Priority Date/Time Associated Diagnosis Comments PAP TEST- RESULT ONLY Routine 06/25/2017 0:00 EST documented in this encounter Results * PAP TEST- RESULT ONLY (06/25/2017 0:00 EST) Pathology Report: CYTOPATHOLOGY REPORT Reports generated via electronic interface contain original data; however they are lacking the format of the original report. Caution should be taken when reading/interpreti ng unformatted reports. Name: ? SHIRA BARNES ? Accession #: ? [id number] ? : ? 1995 (Age: 21) ??F ?Collect Date: ? 06/25/2017 ? Location: ? [facility] ? Receive Date: ? 06/28/2017 ? Provider: BHAVANA RIVAS CNM Copy to: TY SLAUGHTER MD ? Final Report SPECIMEN ADEQUACY ? Satisfactory for Evaluation - transformation zone component present - scant squamous epithelial component secondary to excessive blood - scant squamous epithelial component secondary to excessive inflammation GENERAL CATEGORIZATION ? Epithelial Cell Abnormality INTERPRETATION ? Squamous Cell Abnormality - Atypical squamous cells, undetermined significance (ASC-US). EDUCATIONAL NOTES/RECOMMENDATI ONS ? [facility] recommends following ASCCP's 2012 Updated Consensus Guidelines for the Management of Abnormal Cervical Cancer Screening Tests and Cancer Precursors (JLGTD, 2013; 17(5):S1-S27). ??Consensus guidelines are available online at www.asccp.org. An additional slide was prepared and evaluated. Last Menstrual Period: 03/22/2017 Menstrual/Pregnanc y Status: ?? Other: Law Examiner Clinical/Treatment Hx - None: NEG Specimen/Source: ??Pap Test, Cervix, ThinPrep Imaging System with manual evaluation Document reviewed and electronically signed by: ? SINGH GARCIA MD ? Report ??Date: 07/12/2017 15:20 HPV with Pap Test ? Date Ordered: ? 07/12/2017 ? Status: ?? Signed Out ?Date Complete: ? 07/14/2017 ? By: ??System Interface ? Date Reported: ? 07/14/2017 ? Interpretation RESULT: POSITIVE FOR HIGH OR INTERMEDIATE RISK HPV. E6 OR E7 mRNA from one or more types of HPV types 16,18,31, 33,35,39,45,51,52, 56,58,59,66, and 68 is detected by bleach range operator mediated amplification. High and intermediate risk HPV types are associated with most squamous intraepithelial lesions and cervical cancers. Comments Document reviewed and electronically signed by: ? System Interface ? Report date: 07/14/2017 By the signature above, the attending physician certifies that he/she has personally conducted a gross and/or microscopic examination of the described specimens and rendered or confirmed the above diagnosis. End of Report [facility] 06/25/2017 06/28/2017 Bhavana Rivas [facility] PATHOLOGY ORDERABLES [facility] [address] [place] [address] documented in this encounter Visit Diagnoses Not on filedocumented in this encounter Care Teams Casino Host Relationship Specialty Start Date End Date Emil Swain MD PCP - General 03/12/11 09/06/21 documented as of this encounter
--- OUTSIDE RECORDS SUMMARY | 2024-02-11 00:53 | XMS_ITS | Encounter Summary ---
Author Organization [facility] Address [address] [place] [address] Care Team Providers Care Civil Service Clerk Name Role Phone Emil Swain MD Primary Care Provider Jay Glez MD Primary Care Provider [phone] Encounter Details Date Type Department Care Team (Late st Contact Info) Description 04/20/2019 Lab Requisition [facility] Pathology & Laboratory Medicine - [address] [address] Unknown, Provider, Social History Tobacco Use Types Packs/Day Years [...] Comments CHLAMYDIA/N. GONORRHOEAE AMPLIFIED NUCLEIC ACID Routine 04/20/2019 13:30 EST documented in this encounter Results * CHLAMYDIA/N. GONORRHOEAE AMPLIFIED RNA (04/20/2019 13:30 EST) Neisseria gonorrhoeae Result Negative Negative 04/21/2019 15:10 EST [facility] Chlamydia trachomatis Result Negative Negative 04/21/2019 15:10 EST [facility] ZZUNK ENTIRE ENDOCERVIX / Unknown 04/20/2019 13:30 EST 04/21/2019 7:37 EST Provider Unknown MICROBIOLOGY - GENER AL ORDERABLES [facility] [address] [place] [address] documented in this encounter Visit Diagnoses Not on filedocumented in this encounter Care Teams Civil Service Clerk Relationship Specialty Start Date End Date Emil Swain MD PCP - General 03/12/11 09/06/21 Jay Taylor MD [address] [place] [address] [place] [address] PCP - General 09/07/21 documented as of this encounter
--- OUTSIDE RECORDS SUMMARY | 2024-02-11 00:53 | XMS_ITS | Encounter Summary ---
Author Organization [facility] [place] [address] Care Team Providers Care House Painter Name Role Phone None Primary Care Provider Unavailabl e Reason for Visit * Reason Comments Colposcopy Encounter Details Date Type Department Care Team (Latest Contact Info) Description 07/27/2023 11:30 AM EDT Procedure visit Obstetrics [place] [address] Whitney Scott MD [facility] [address] OBSTETRICS [place] [address] Atypical squamous cells cannot exclude high grade squamous intraepithelial lesion on cytologic smear of cervix (ASC-H) Social History Tobacco Use Types Packs/Day Years Used Date Smoking Tobacco: Every Day Cigarettes Smokeless Tobacco: Never Comments:Smokes marijuana as well. Sex and Gender Information Value Date Recorded Sex Assigned at Not on file Gender Identity Not on file Sexual Orientation Not on file documented as of this encounter Last Filed Vital Signs Vital Sign Reading Time Taken Comments Blood Pressure 106/61 07/27/2023 11:05 AM EDT Pulse 79 07/27/2023 11:05 AM EDT Temperature 36.4 ??C (97.6 ??F) 07/27/2023 11:05 AM E DT Respiratory Rate - - Oxygen Saturation 97% 07/27/2023 11:05 AM EDT Inhaled Oxygen Concentration - - Weight 64.4 kg (142 lb) 07/27/2023 11:05 AM EDT Height 160 cm (5' 3) 07/27/2023 11:05 AM EDT Body Mass Index 25.15 07/27/2023 11:05 AM EDT documented in this encounter Progress Notes * Whitney Scott MD - 07/27/2023 11:30 AM EDT Images from the original note were not included. [employer] Colposcopy Procedure Note Stacey Barnes is a 27 y.o. No obstetric history on file. here for colposcopy. Cervical cancer screening history includes: Cervical Cancer Screening History - Results and Follow-ups All results Result date Tests and Procedures Follow-ups 07/06/2023 (Order#[id number]) Swimming Instructor Cytology Final Report *Pap Smear: ASC-H *HPV: HPV Other + [employer] CYTOLOGY FINAL REPORT: Colposcopy *Indicates a transcribed result H/o treatment: No She is using vasectomy for control. HPV vaccine: unsure - will contact solar energy advisor to find out Tobacco use: Yes Immunocompromised: No Allergies Allergen Reactions Codeine Gold Salts GOLD Objective: LMP 06/03/2023 (Approximate) Gen: well-appearing, NAD Procedure Note Immediately prior [...] was completed. Acetowhite change was present: yes denseacetowhite changes along anterior lip. The cervix was completely visualized: yes and the lesion wascompletely visualized No OBGyn Exam Ammunition Supervisor biopsies were done at 1, 3, 8, 10 o'clock along with ECC. Bleeding was controlled using Monsels solution. The patient tolerated the procedure well. This patient would be a good candidate for office LEEP: yes Labs/Pathology: Test none 4 # of biopsies sent yes ECC sent Impression: High Grade Plan: Will contact patient with results via [facility] or by phone if she has not logged in. Verbal and written discharge instructions given. Encouraged smoking cessation. Discussed importance of HPV vaccine. She will reach out to her solar energy advisor to see if she received it. We appreciate this referral and will continue to follow Stacey Barnes along with you. Please feel free to contact us with any questions or concerns. Whitney Scott MD 07/27/2023 documented in this encounter Miscellaneous Notes * Addendum Note - Whitney Scott MD - 07/27/2023 11:30 AM EDTAddended by: WHITNEY SCOTT on: 07/27/2023 11:48 AM Modules accepted: Orders documented in this encounter Plan of Treatment Upcoming Encounters Date Type Department Care Team (Late st Contact Info) Description 05/08/2024 10:40 AM EST Office Visit Obstetrics [place] [address] Lucy Hussein APRN [facility] OBSTETRICS [place] [address] documented as of this encounter Procedures Procedure Name Priority Date/Time Associated Diagnosis Comments SPECIMEN TO PATHOLOGY Routine 07/27/2023 11:49 AM EDT Atypical squamous cells cannot exclude high grade squamous intraepithelial lesion on cytologic smear of cervix (ASC-H) SPECIMEN TO PATHOLOGY Routine 07/27/2023 11:37 AM EDT Atypical squamous cells cannot exclude high grade squamous intraepithelial lesion on cytologic smear of cervix (ASC-H) SPECIMEN TO PATHOLOGY Routine 07/27/2023 11:37 AM EDT Atypical squamous cells cannot exclude high grade squamous intraepithelial lesion on cytologic smear of cervix (ASC-H) SPECIMEN TO PATHOLOGY Routine 07/27/2023 11:37 AM EDT Atypical squamous cells cannot exclude high grade squamous intraepithelial lesion on cytologic smear of cervix (ASC-H) SPECIMEN TO PATHOLOGY Routine 07/27/2023 11:37 AM EDT Atypical squamous cells cannot exclude high grade squamous intraepithelial lesion on cytologic smear of cervix (ASC-H) SPECIMEN TO PATHOLOGY Routine 07/27/2023 11:37 AM EDT Atypical squamous cells cannot exclude high grade squamous intraepithelial lesion on cytologic smear of cervix (ASC-H) SURGICAL PATHOLOGY REPORT Routine 07/27/2023 11:30 AM EDT documented in this encounter Results * Specimen to Pathology (07/27/2023 11:49 AM EDT) AP Specimen 07/27/2023 11:4 9 AM EDT 07/27/2023 11:49 AM EDT Narrative [facility] - 07/27/2023 11:49 AM EDT Specimen requisition ordered. ??Separate Pathology report to follow Whitney Scott MD PATHOLOGY/[place] [address] * Specimen to Pathology (07/27/2023 11:37 AM EDT) AP Specimen 07/27/2023 11:3 7 AM EDT 07/27/2023 11:37 AM EDT Narrative [facility] - 07/27/2023 11:37 AM EDT Specimen requisition ordered. ??Separate Pathology report to follow Whitney Scott MD PATHOLOGY/CYTOLOG Y ORDERABLES Performing Organization Address City/[facility]/[place] [address] * Specimen to Pathology (07/27/2023 11:37 AM EDT) AP Specimen 07/27/2023 11:3 7 AM EDT 07/27/2023 11:37 AM EDT Narrative [facility] - 07/27/2023 11:37 AM EDT Specimen requisition ordered. ??Separate Pathology report to follow Whitney Scott MD PATHOLOGY/[place] [address] * Specimen to Pathology (07/27/2023 11:37 AM EDT) AP Specimen 07/27/2023 11:3 7 AM EDT 07/27/2023 11:37 AM EDT Narrative [facility] - 07/27/2023 11:37 AM EDT Specimen requisition ordered. ??Separate Pathology report to follow Whitney Scott MD PATHOLOGY/CYTOLOG Y ORDERABLES Performing Organization Address [facility] [place] [address] * Specimen to Pathology (07/27/2023 11:37 AM EDT) AP Specimen 07/27/2023 11:3 7 AM EDT 07/27/2023 11:37 AM EDT Narrative [facility] - 07/27/2023 11:37 AM EDT Specimen requisition ordered. ??Separate Pathology report to follow Whitney Scott MD PATHOLOGY/CYTOLOG Y ORDERABLES Performing Organization Address [facility] [place] [address] * Specimen to Pathology (07/27/2023 11:37 AM EDT) AP Specimen 07/27/2023 11:3 7 AM EDT 07/27/2023 11:37 AM EDT Narrative [facility] - 07/27/2023 11:37 AM EDT Specimen requisition ordered. ??Separate Pathology report to follow Whitney Scott MD PATHOLOGY/CYTOLOG Y ORDERABLES Performing Organization Address [facility] [place] [address] * (ABNORMAL) Surgical Pathology Report (07/27/2023 11:30 AM EDT) Final Diagnosis [id number] ? Location: 5L The signing pathologist has (i) examined the relevant preparation(s) for the specimen(s) and (ii) rendered or confirmed the diagnosis(es). . ?Surgical Pathology DIAGNOSIS A - Cervix, 3 o'clock, biopsy: - High grade squamous intraepithelial lesion (HSIL/CIN2). B- Cervix, 8 o'clock, biopsy: - High grade squamous intraepithelial lesion (HSIL/CIN2-3). C- Cervix, 10 o'clock, biopsy: - High grade squamous intraepithelial lesion (HSIL/CIN2). D- Endocervix, curetting: - Fragments of benign endocervical epithelium intermixed with mucus and blood clots. E - Cervix, 11 o'clock, biopsy: - High grade squamous intraepithelial lesion (HSIL/CIN2). Electronically signed by: ?Valarie CROSS, Alfonso Verified: ??08/06/2023 9:28 ?? Pathologist Performed at: ??[place] [place], [place] [address] Coding Specialist Home Health: Huyen Temple MD, FCAP, ??CLIA Certificate: [id number] DISCUSSION THIS RESULT REQUIRES PHYSICIAN/A.P.P. FOLLOW UP ADDITIONAL STUDIES Immunohistochemistry Studies: Formalin-fixed, paraffin-embedded tissue sections are studied using the polymer technique with appropriate positive and negative controls. ?These IHC studies provide the pathologist with adjunctive diagnostic information. Antibody specificity has been verified by testing antibodies on a series of in-house tissues with known immunohistochemical performance characteristics. The clinical interpretation of any antibody positive staining or its absence is evaluated within the context of clinical presentation, morphology, histopathological criteria and other diagnostic tests. Block ? Antibody ? Result (Positive/Negative) A1,B1,C1,E1 ? P16 ? focal block like staining SPECIMEN(S) SUBMITTED A - Cervical Bx @3, biopsy (_) B- Cervical Bx @8, biopsy (_) C Cervical Bx @ 10, biopsy (_) D- Endocervical ECC, curetting (_) E - ??Cervix 11 o'clock, biopsy (1) CLINICAL INFORMATION 37-year-old with ASC-H, HPV+ Pap smear . SPECIMEN PROCESSING A - Labeled/Fixative: Biopsy at 3, formalin. Quantity/Size: Single, 0.5 cm. Tissue Description: Soft, elizalde-pink tissue. Sections/Processing: Submitted in toto ??in 1 cassette labeled A1. B - Labeled/Fixative: Biopsy at 8, formalin. Quantity/Size: Single, 0.5 cm. Tissue Description: Soft, elizalde-pink admixed with dark red clotted tissue. Sections/Processing: Submitted in toto ??in 1 cassette labeled B1. C - Labeled/Fixative: Biopsy at 10, formalin. Quantity/Size: Single, 0.5 cm. Tissue Description: Soft, elizalde-pink tissue. Sections/Processing: Submitted in toto ??in 1 cassette labeled C1. D - Labeled/Fixative: ECC, formalin. Quantity/Size: Fragments, 2 x 1.5 x 0.1 cm. Tissue Description: Soft, elizalde-red admixed with mucinous material tissues. Sections/Processing: Submitted in toto ??in 1 cassette labeled D1. E - Labeled/Fixative: Biopsy at 11, formalin. Quantity/Size: Single, 0.5 cm. Tissue Description: Soft, elizalde-pink tissue. Sections/Processing: Submitted in toto ??in 1 cassette labeled E1. ??krd(A) 08/06/2023 9:28 AM EDT [facility] SPECIMEN FROM CERVIX OR VAGINA / Unknown 07/27/2023 11:30 AM EDT 07/27/2023 11:30 AM EDT SPECIMEN FROM CERVIX OR VAGINA / Unknown 07/27/2023 11:30 AM EDT 07/27/2023 11:30 AM EDT SPECIMEN FROM CERVIX OR VAGINA / Unknown 07/27/2023 11:30 AM EDT 07/27/2023 11:30 AM EDT ENDOCERVICAL STRUCTURE / Unknown 07/27/2023 11:30 AM EDT 07/27/2023 11:30 AM EDT SPECIMEN FROM CERVIX OR VAGINA / Unknown 07/27/2023 11:30 AM EDT 07/27/2023 11:30 AM EDT Whitney Scott MD PATHOLOGY/CYTOLOG Y ORDERABLES [facility] [place] [address] documented in this encounter Visit Diagnoses Diagnosis Atypical squamous cells cannot exclude high grade squamous intraepithelial lesion on cytologic smear of cervix (ASC-H) Papanicolaou smear of cervix with atypical squamous cells cannot exclude high grade squamous intraepithelial lesion (ASC-H) documented in this encounter Care Teams House Painter Relationship Specialty Start Date End Date None None PCP - General 07/06/23 documented as of this encounter
--- OUTSIDE RECORDS SUMMARY | 2024-02-11 00:53 | XMS_ITS | Clinical Summary ---
Author Organization [facility] Address [address] [place] [address] Care Team Providers Care Project Executive Name Role Phone Jay Taylor MD Primary Care Provider [phone] Encounters Date Type Department Care Team Description 01/04/2024 Lab Requisition [facility] Pathology & Laboratory Medicine - [address] [address] Outr Resulting Lab, Provider from Last 3 Months Social History Tobacco Use Types Packs/Day Years Used Date Smoking Tobacco: Never Assessed Interpersonal Safety Answer Date Record ed Physically Hurt Never 12/10/2019 Verbally Threaten Not on file 12/10/2019 Sex and Gender Information Value Date Recorded Sex Assigned at Not on file Gender Identity Not on file Sexual Orientation Not on file Plan of Treatment Health Maintenance Due Date Last Done Comments Hepatitis C Screen 1995 Hepatitis B Vaccine (1 of 3 - 19+ 3-dose series) 08/13 COVID-19 Vaccine ( season) 2023 Procedures Procedure Name Priority Date/Time Associated Diagnosis Comments CHLAMYDIA/N. GONORRHOEAE AMPLIFIED NUCLEIC ACID Routine 01/04/2024 11:00 EDT from Last 3 Months Results * CHLAMYDIA/N. GONORRHOEAE AMPLIFIED NUCLEIC ACID (01/04/2024 11:00 EDT) Neisseria gonorrhoeae Result Negative Negative 01/05/2024 12:50 EDT [facility] Chlamydia trachomatis Result Negative Negative 01/05/2024 12:50 EDT [facility] Swab VAGINAL STRUCTURE / Unknown 01/04/2024 11:00 EDT 01/04/2024 22:02 EDT Provider Outr Resulting Lab MICROBIOLOGY - GENERAL ORDERABLES [facility] [address] [place] [address] from Last 3 Months Care Teams Project Executive Relationship Specialty Start Date End Date Jay Taylor MD [facility] [place] [address] PCP - General 09/07/21
--- OUTSIDE RECORDS SUMMARY | 2024-02-11 00:53 | XMS_ITS | Encounter Summary ---
Author Organization [facility] Address [address] [place] [address] Care Team Providers Care Spool Salvager Name Role Phone Jay Taylor MD Primary Care Provider [phone] Encounter Details Date Type Department Care Team (Late st Contact Info) Description 03/11/2023 Lab Requisition [facility] Pathology & Laboratory Medicine - [address] [address] Outr Resulting Lab, Provider Social History Tobacco [...] Comments CHLAMYDIA/N. GONORRHOEAE AMPLIFIED NUCLEIC ACID Routine 03/11/2023 9:45 EDT documented in this encounter Results * CHLAMYDIA/N. GONORRHOEAE AMPLIFIED RNA (03/11/2023 9:45 EDT) Neisseria gonorrhoeae Result Negative Negative 03/12/2023 14:36 EDT [facility] Chlamydia trachomatis Result Negative Negative 03/12/2023 14:36 EDT [facility] Swab ENDOCERVICAL STRUCTURE / Unknown 03/11/2023 9:45 EDT 03/11/2023 17:38 EDT Provider Outr Resulting Lab MICROBIOLOGY - GENERAL ORDERABLES [facility] [address] [place] [address] documented in this encounter Visit Diagnoses Not on filedocumented in this encounter Care Teams Spool Salvager Relationship Specialty Start Date End Date Jay Taylor MD [address] [place] [address] PCP - General 09/07/21 documented as of this encounter
--- OUTSIDE RECORDS SUMMARY | 2024-02-11 00:53 | XMS_ITS | Encounter Summary ---
Author Organization [facility] Address [address] [place] [address] Care Team Providers Care Shotgun Shell Assembly Machine Operator Name Role Phone Emil Swain MD Primary Care Provider Jay Glez MD Primary Care Provider [phone] Encounter Details Date Type Department Care Team (Late st Contact Info) Description 08/22/2021 Lab Requisition [facility] Pathology & Laboratory Medicine - [address] [address] Jaylene Villasenor, [address] [place] [id number] Encounter for other general examination Social History Tobacco Use Types Packs/Day Years [...] Name Priority Date/Time Associated Diagnosis Comments PAP TEST Today 08/21/2021 10:30 EDT Encounter for other general examination HPV DNA DETECTION WITH GENOTYPING, PCR Today 08/21/2021 10:30 EDT Encounter for other general examination documented in this encounter Results * (ABNORMAL) HUMAN PAPILLOMAVIRUS (HPV) DETECTION-HIGH RISK TYPES (08/21/2021 10:30 EDT) HPV other High Risk types, PCR Positive( A) Negative 08/27/2021 15:06 T [facility] Comment:E6 OR E7 mRNA from o ne or more types of HPV types 16,18,31,33,35,39,45,51,52,56,58,59,66, and 68 is detected by administrative executive mediated amplification. High and intermediate risk HPV types are associated with most squamous intraepithelial lesions and cervical cancers. Papanicolaou smear specimen (specimen) CERVIX UTERI STRUCTURE / Unknown 08/21/2021 10:30 EDT 08/26/2021 16:17 EDT Jaylene Villasenor SAFETY TECH MICROBIOLOGY - GENER AL ORDERABLES Performing Organization Address City/State/[facility] Co de Phone Number [facility] [address] [place] [address] * PAP TEST (08/21/2021 10:30 EDT) Specimens A. Cervix and/or Endocervix , ThinPrep Imaging System with Manual Evaluation 08/27/2021 15:06 [facility] Specimen Adequacy Satisfactory for Evaluation - transformation zone component present 08/27/2021 15:06 [facility] General Categorization Epithelial Cell Abnormality 08/27/2021 15:06 [facility] Descriptive Diagnosis Squamous Cell Abnormality - Atypical squamous cells, undetermined significance (ASC-US). 08/27/2021 15:06 [facility] Educational Comments [facility] recommends following ASCCP's 2012 Updated Consensus Guidelines for the Management of Abnormal Cervical Cancer Screening Tests and Cancer Precursors (JLGTD, 2013; 17(5):S1-S27). Consensus guidelines are available online at www.asccp.org. 08/27/2021 15:06 [facility] Attestation By the signature below, the attending physician certifies that they have personally conducted a gross and/or microscopic examination of the described specimens and rendered or confirmed the above diagnosis. 08/27/2021 15:06 [facility] at 1506 Clinical History See below 08/28/19 15:06 EDT [facility] HPV The result for the Human Papillomavirus (HPV) Detection-High Risk Types is Positive . E6 OR E7 mRNA from one or more types of HPV types 16,18,31,33,35,39 ,45,51,52,56,58,5 9,66, and 68 is detected by administrative executive mediated amplification. High and intermediate risk HPV types are associated with most squamous intraepithelial lesions and cervical cancers. Testing was performed on specimen [id number] and was resulted on 08/27/2021 1505 EDT by ARTURO, LAB INSTRUMENT RESULTS IN 08/27/2021 15:06 EDT [facility] Performing Lab [facility] 08/27/2021 15:06 EDT [facility] Scanned Images 08/27/2021 15:06 EDT [facility] Papanicolaou smear specimen (specimen) CERVIX UTERI STRUCTURE / Unknown 08/21/2021 10:30 EDT 08/22/2021 9:02 EDT Jaylene Villasenor SAFETY TECH PATHOLOGY ORDERABLES [facility] [address] [place] [address] documented in this encounter Visit Diagnoses Diagnosis Encounter for other general examination documented in this encounter Care Teams Shotgun Shell Assembly Machine Operator Relationship Specialty Start Date End Date Emil Swian MD PCP - General 03/12/11 09/06/21 Jay Taylor MD [facility] [place] [address] PCP - General 09/07/21 documented as of this encounter
--- OUTSIDE RECORDS SUMMARY | 2024-02-11 00:53 | XMS_ITS | Encounter Summary ---
Author Organization [facility] [place] [address] Care Team Providers Care Shipboard Intelligence Analyst Name Role Phone None Primary Care Provider Unavailabl e Encounter Details Date Type Department Care Team (Late st Contact Info) Description 07/19/2023 Telephone Obstetrics [place] [address] Tiffanie Gardiner CNM [facility] OBSTETR[facility] AND GYNECOLOGY [place], [place] [id number] Social History Tobacco Use Types Packs/Day Years Used Date Smoking Tobacco: Every Day Cigarettes Smokeless Tobacco: Never Comments:Smokes marijuana as well. Sex and Gender Information Value Date Recorded Sex Assigned at Not on file Gender Identity Not on file Sexual Orientation Not on file documented as of this encounter Miscellaneous Notes * Telephone Encounter - Tiffanie Gardiner CNM - 07/19/2023 3:07 PM EDT Spoke with Stacey about her ASC-H pap and HPV + and the recommendation for a colposcopy. She is aware and plans to schedule. Kyle Gardiner CNM, ANDREA-BC, MSN, FACILITY EXAMINER She/her/hers Department of Obstetrics and Gynecology [facility] documented in this encounter Plan of Treatment Upcoming Encounters Date Type Department Care Team (Late st Contact Info) Description 05/08/2024 10:40 AM EST Office Visit Obstetrics [place] [address] Lucy Hussein, NINA [facility] [place] [address] documented as of this encounter Visit Diagnoses Not on filedocumented in this encounter Care Teams Shipboard Intelligence Analyst Relationship Specialty Start Date End Date None None PCP - General 07/06/23 documented as of this encounter
--- OUTSIDE RECORDS SUMMARY | 2024-02-11 00:53 | XMS_ITS | Encounter Summary ---
Author Organization [facility] Address [address] [place] [address] Care Team Providers Care Store Stock Help Name Role Phone Emil Swain MD Primary Care Provider Unavailabl e Encounter Details Date Type Department Care Team (Late st Contact Info) Description 07/21/2018 Results Only [facility] [phone] Isela George, [employer] W[employer]ER [address] [place] [address] Social History Tobacco Use Types Packs/Day Years [...] Diagnosis Comments PAP TEST- RESULT ONLY Routine 07/21/2018 0:00 EDT documented in this encounter Results * PAP TEST- RESULT ONLY (07/21/2018 0:00 EDT) Pathology Report: CYTOPATHOLOGY REPORT Reports generated via electronic interface contain original data; however they are lacking the format of the original report. Caution should be taken when reading/interpreti ng unformatted reports. Name: ? SHIRA BARNES ? Accession #: ? [id number] ? : ? 1995 (Age: 22) ??F ?Collect Date: ? 07/21/2018 ? Location: ? [facility] ? Receive Date: ? 07/22/2018 ? Provider: ISELA GEORGE MERCURY WASHER Copy to: TY SLAUGHTER MD ? Final Report SPECIMEN ADEQUACY ? Satisfactory for Evaluation - transformation zone component present GENERAL CATEGORIZATION ? Epithelial Cell Abnormality INTERPRETATION ? Squamous Cell Abnormality - Atypical squamous cells, undetermined significance (ASC-US). Shift in ursula present suggestive of bacterial vaginosis. EDUCATIONAL NOTES/RECOMMENDATI ONS ? [facility] recommends following ASCCP's 2012 Updated Consensus Guidelines for the Management of Abnormal Cervical Cancer Screening Tests and Cancer Precursors (JLGTD, 2013; 17(5):S1-S27). ??Consensus guidelines are available online at www.asccp.org. Previous Gynecologic Pathology: ASC-US: 2018 Infection History: Pos for HPV: 2018 Specimen/Source: ??Pap Test, Cervix, ThinPrep Imaging System with manual evaluation Document reviewed and electronically signed by: ? MANNY ENRIQUEZ MD ? Report ??Date: 07/27/2018 14:33 HPV with Pap Test ? Date Ordered: ? 07/27/2018 ? Status: ?? Signed Out ?Date Complete: ? 07/28/2018 ? By: ??System Interface ? Date Reported: ? 07/28/2018 ? Interpretation RESULT: POSITIVE FOR HIGH OR INTERMEDIATE RISK HPV. E6 OR E7 mRNA from one or more types of HPV types 16,18,31, 33,35,39,45,51,52, 56,58,59,66, and 68 is detected by supervisor machine setter mediated amplification. High and intermediate risk HPV types are associated with most squamous intraepithelial lesions and cervical cancers. Comments Document reviewed and electronically signed by: ? System Interface ? Report date: 07/28/2018 By the signature above, the attending physician certifies that he/she has personally conducted a gross and/or microscopic examination of the described specimens and rendered or confirmed the above diagnosis. End of Report [facility] 07/21/2018 07/22/2018 Isela George APRN PATHOLOGY ORDERAB LES [facility] [address] [place] [address] documented in this encounter Visit Diagnoses Not on filedocumented in this encounter Care Teams Store Stock Help Relationship Specialty Start Date End Date Emil Swain MD PCP - General 03/12/11 09/06/21 documented as of this encounter
--- OUTSIDE RECORDS SUMMARY | 2024-02-11 00:53 | XMS_ITS | Encounter Summary ---
Author Organization [facility] [place] [address] Care Team Providers Care Heel Finisher Name Role Phone None Primary Care Provider Unavailabl e Reason for Visit * Reason Comments Establish Care Encounter Details Date Type Department Care Team (Late st Contact Info) Description 07/06/2023 9:00 AM EST Office Visit Obstetrics [place] [address] [facility] [place] [address] Papanicolaou smear, as part of routine gynecological examination; Screening examination for STI; Encounter for gynecological examination without abnormal finding Social History Tobacco Use Types Packs/Day Years Used Date Smoking Tobacco: Every Day Cigarettes Smokeless Tobacco: Never Comments:Smokes marijuana as well. Sex and Gender Information Value Date Recorded Sex Assigned at Not on file Gender Identity Not on file Sexual Orientation Not on file documented as of this encounter Last Filed Vital Signs Vital Sign Reading Time Taken Comments Blood Pressure 118/64 07/06/2023 9:11 AM EST Pulse 64 07/06/2023 9:11 AM EST Temperature 36.5 ??C (97.7 ??F) 07/06/2023 9:11 AM ES T Respiratory Rate - - Oxygen Saturation 100% 07/06/2023 9:11 AM EST Inhaled Oxygen Concentration - - Weight 64.6 kg (142 lb 8 oz) 07/06/2023 9:11 AM EST Height - - Body Mass Index - - documented in this encounter Progress Notes * Odin Arriaza LNA - 07/06/2023 9:00 AM EST ____ Patient not reached, will update meds, allergies, tobacco, pharmacy, pain/depression during visit. __x__Patient reached and the following information was reviewed/obtained per protocol: __x_Confirmed patient name and date of _x__Confirmed upcoming appt _x__Reviewed medications, allergies, tobacco, pharmacy, pain/depression Confirmed has completed any pre-visit questionnaires If has not received required previsit questionnaires, send via Preo Other information or concerns: [phone] * Breana Reyes - 07/06/2023 9:00 AM EST Reason for Visit: Stacey Barnes is a 27 y.o. No obstetric history on file. female who presents for annual ACUTE CARE NURSE exam. Concerns today: Pt thinks she has a yeast infection (again). She reports she has had 2 days of itchiness, and has repeated yeast/BV in the last few years. She wishes to establish care in the ACUTE CARE NURSE clinic. She reports she had abnormal high risk HPV screenings in the past and had a colposcopy in 2021, afterwards which she was supposed to get yearly Paps. Her mother had cervical cancer at about the same age, although patient is unsure which treatments her mother had done at the time. ACUTE CARE NURSE HX: - Menses: yes, monthly, 5-7 days, 3-4 pads a day. - Pregnancies:4 - Deliveries: 3 - ACUTE CARE NURSE surgeries: Colposcopy 2021, - Last Pap: 2021. - Abnormal pap smears: Yes, 2021 and several times before. Care was at [facility]. High risk HPV strain - Polyps or Fibroids:No - Contraception: has Vasectomy - Hx of DVT/Blood clot:NO Sexual Health - Sexually active with - New partners within the year: One - Denies post-coital bleeding or dyspareunia: Some pain with deep penetration - Hx of STIs: HPV only - Desires STI screening: yes: - Sexual question/concerns? NO Social History - Who do you live with?: and two children ages (5F, 7F) - Do you have access to safe housing, transportation, food? Yes - Any safety concerns? NO - How do you spend your time? Read, childcare, outdoor activities, caring for farm animals - Depression/anxiety: Some depression, does not take rx, does have a mental health care providers - Exercise: walking, working the farm - Diet: denies problems - Stress level: good Breast Cancer Risk Screening: - Personal history of breast, ovarian, tubal, or peritoneal cancer: NO - Family history of breast, ovarian, tubal, or peritoneal cancer: Mom has had cervical cancer age 27 estimation, - Ancestry (eg, Ashkenazi Hinduism) associated with BRCA1 or 2 mutations: NO - Known carrier of a pathogenic mutation for a hereditary breast and ovarian cancer syndrome in self or relative: NO - Mammographic breast density: Has not had - Previous breast biopsy indicating high-risk lesion (eg, atypical hyperplasia): no - Age of menarche, age at first live , number of pregnancies, and menopausal status: 10, 15, 3, not menopausal. Unified Communications Architect Focused ROS (bold indicates positive): - Breast concerns: masses, skin changes, pain or nipple discharge - Urinary concerns: dysuria, urinary frequency, urgency, nocturia, enuresis, hematuria or incontinence - Sexual concerns: dyspareunia, post-coital bleeding, decreased libido, or inability to achieve orgasm - Gynecologic concerns: abnormal vaginal discharge or odor, vulvar/vaginal itching, burning or irritation, pelvic pain - Menopausal concerns: hot flashes, night sweats, vaginal dryness, vaginal bleeding, sleep disturbance, mood changes, weight concerns - Radiotherapy to the chest between age 10 and age 30: NO No current outpatient medications on file prior to visit. No current facility-administered medications on file prior to visit. Allergies Allergen Reactions Codeine Gold Salts GOLD There is no immunization history on file for this patient. No past medical history on file. No past surgical history on file. No family history on file. Social History Socioeconomic History Marital status: Spouse name: Not on file Number of children: Not on file Years of education: Not on file Highest education level: Not on file Occupational History Not on file Tobacco Use Smoking status: Every Day Packs/day: .5 Types: Cigarettes Smokeless tobacco: Never Tobacco comments: Smokes marijuana as well. Vaping Use Vaping Use: Never used Substance and Sexual Activity Alcohol use: Not on file Drug use: Not on file Sexual activity: Not on file Other Topics Concern Not on file Social History Narrative Not on file Social Determinants of Health Financial Resource Strain: Not on file Food Insecurity: Not on file Transportation Needs: Not on file Physical Activity: Not on file Intimate Partner Violence: Not on file Housing Stability: Not on file PE: BP 118/64 Pulse 64 Temp 36.5 ??C (97.7 ??F) Wt 64.6 kg (142 lb 8 oz) LMP 06/03/2023 (Approximate) SpO2 100% General - A&O x 3. Pleasant with no apparent distress. Breasts - No dominant masses, nipple discharge, or retraction. Pelvic exam External Genitalia - No lesions, discharge, or erythema, normal hair pattern Vagina - pale pink with atrophic changes, no lesions Cervix - Neg CMT, without lesions or abnormal discharge Uterus - normal size, non-tender, mobile Adnexa - non-tender, no palpable masses Wet mount- neg whiff, neg clue, neg yeast, PH 4.5 Tv Production Assistant present for exam Assessment/ Plan: Healthy 27 y.o. woman here for a motor checker exam. Found to have a normal exam. 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 We will call you with the results. Pt gives consent to call with results, ok to leave message at number in chart Breast screening risk reviewed. Mammogram yearly:starting at age 40 Up to date on health maintenance This patient sees her primary care provider for age and disease specific screening not related to gynecological care Return for pelvic/breast exam in 1 year Preventative recommendations for this patient include: BSE Regular exercise Healthy diet Note to patient: The Century Cures Act makes medical notes like this available to patients in the interest of transparency. However, be advised this is a medical document. It is intended as towb-qf-gehp communication. It is written in medical language and may contain abbreviations or verbiage that are unfamiliar. Breana Reyes APRN Attest Patient seen, chart reviewed, discussed with team and agree with GABRIELE student note. Kyle Gardiner CNM, MARGO-BC, MSN, BURRER HAND She/her/hers Department of Obstetrics and Gynecology [facility] documented in this encounter Plan of Treatment Upcoming Encounters Date Type Department Care Team (Late st Contact Info) Description 05/08/2024 10:40 AM EST Office Visit Obstetrics and Gynecology at [facility] [place] [address] Lucy Hussein APRN [facility] [address] OBSTETRICS [place] [address] documented as of this encounter Procedures Procedure Name Priority Date/Time Associated Diagnosis Comments VAGINITIS/OSIS PANEL ([facility]/APD/NLH/CGP) Routine 07/06/2023 12:03 PM EST Screening examination for STI GC/CHLAMYDIA Routine 07/06/2023 12:03 PM EST Screening examination for STI HSV 1 AND 2 IGG ANTIBODIES Routine 07/06/2023 10:49 AM EST Screening examination for STI HEPATITIS C ANTIBODY Routine 07/06/2023 10:49 AM EST Screening examination for STI SYPHILIS ANTIBODY SCREEN WITH REFLEX Routine 07/06/2023 10:49 AM EST Screening examination for STI HIV SCREEN, 4TH GENERATION ([facility]/CGP/APD/NLH) Routine 07/06/2023 10:49 AM EST Screening examination for STI CYTOPATHOLOGY GYNECOLOGICAL Routine 07/06/2023 10:20 AM EST Papanicolaou smear, as part of routine gynecological examination HPV Routine 07/06/2023 9:00 AM EST ACUTE CARE NURSE CYTOLOGY INTERPRETATION Routine 07/06/2023 9:00 AM EST ACUTE CARE NURSE CYTOLOGY FINAL REPORT Routine 07/06/2023 9:00 AM EST documented in this encounter Results * Vaginitis/osis Panel ([facility]/APD/NLH/CGP) (07/06/2023 12:03 PM EST) Bacterial vaginosis Invalid Negative [facility] Melida sp. Group Negative Negative [facility] Melida Glabrata Negative Negative [facility] Trichomonas vaginalis Negative Negative [facility] BV/CV/TV Interp Results from these nucleic acid amplification assay should be interpreted in conjunction with other available clinical and laboratory data. ??Negative results do not rule out a possible infection. ??Accurate results are dependent on adequate specimen collection. ??Invalid results indicate there was an error generating a result, sample recollection is suggested. ??Bacterial species targeted by the BV assay may comprise part of the normal microbiome for a significant number of women. ??Melida sp. group target includes C. albicans, C. tropicalis, C. parapsilosis, C. dubliniensis. ??The Aptima CV/TV and BV Assay were tested on the [employer] Instrument. These assays are cleared by the [place] Food & Drug Administration for clinical testing. [facility] Vaginal 07/06/2023 12:0 3 PM EST 07/06/2023 12:03 PM EST Narrative Resulting Agency Comment Spec In Lab Tiffanie ALMONTE MICROBIOLOGY - G ENERAL ORDERABLES [facility] [place] [address] * GC/Chlamydia Cervical (07/06/2023 12:03 PM EST) GC Gene Amp Negative Negative [facility] Comment: Eye specimens are not an FDA-cleared source for this testing. The performance of this assay with eye specimens has been validated in-house. GC Source Cervical [facility] Chlamydia Gene Amp Negative Negative [facility] Comment: Eye specimens are not an FDA-cleared source for this testing. The performance of this assay with eye specimens has been validated in-house. Chlm Source Cervical [facility] Cervical 07/06/2023 12:0 3 PM EST 07/06/2023 12:03 PM EST Narrative Resulting Agency Comment Spec In Lab Tiffanie Nallely Abdifatah ALMONTE MICROBIOLOGY - G ENERAL ORDERABLES [facility] [place] [address] * HSV 1 and 2 IgG Antibodies (07/06/2023 10:49 AM EST) HSV Type 1 Ab, IgG Negative Negative [facility] HSV Type 2 Ab, IgG Negative Negative [facility] Blood 07/06/2023 10:4 9 AM EST 07/07/2023 7:14 AM EST Narrative Resulting Agency Comment Spec In Lab Tiffanie ALMONTE IMMUNOLOGY ORDER TERI Performing Organization Address City/[facility]/ZIP Co de Phone Number [facility] [place] [address] * Hepatitis C Antibody (07/06/2023 10:49 AM EST) Hepatitis C Antibody Negative Negative [facility] Blood 07/06/2023 10:4 9 AM EST 07/06/2023 10:54 AM EST Narrative Resulting Agency Comment Spec In Lab Tiffanie Nallely Abdifatah ALMONTE CHEMISTRY ORDERA BLES Performing Organization Address City/[facility]/ZIP Co de Phone Number [facility] [place] [address] * Syphilis Screening Antibody with reflex RPR (07/06/2023 10:49 AM EST) Syphilis IgG/IgM Negative Negative [facility] Blood 07/06/2023 10:4 9 AM EST 07/06/2023 10:54 AM EST Narrative Resulting Agency Comment Spec In Lab Tiffanie ALMONTE CHEMISTRY ORDERA BLES Performing Organization Address City/[facility]/ZIP Co de Phone Number [facility] [place] [address] * HIV Screen, 4th Generation ([facility]/CGP/APD/NLH) (07/06/2023 10:49 AM EST) HIV Ab/Ag Screen Negative Negative [facility] Comment: This 4th Generation HIV [...] HIV Comment Low Risk of HIV Infection [facility] Blood 07/06/2023 10:4 9 AM EST 07/06/2023 10:54 AM EST Narrative Resulting Agency Comment Spec In Lab Tiffanie Gardiner CNM CHEMISTRY ORDERA BLES Performing Organization Address [facility] de Phone Number [facility] [place] [address] * Cytopathology Gynecological (07/06/2023 10:20 AM EST) AP Specimen 07/06/2023 10:2 0 AM EST 07/06/2023 10:20 AM EST Narrative [facility] - 07/06/2023 10:20 AM EST Specimen requisition ordered. ??Separate Pathology report to follow Tiffanie Gardiner CNM PATHOLOGY/CYTOLO GY ORDERABLES Performing Organization Address [facility] [place] [address] * Unified Communications Architect Cytology Final Report (07/06/2023 9:00 AM EST) Unified Communications Architect Cytology Final Report [id number] ? Location: 5L The signing pathologist has (i) examined the relevant preparation(s) for the specimen(s) and (ii) rendered or confirmed the diagnosis(es). . ? Unified Communications Architect Final DIAGNOSIS Epithelial Cell Abnormality Atypical squamous cells cannot exclude a high-grade squamous intraepithelial lesion (ASC-H). Cells compatible with a low-grade squamous intraepithelial lesion (LSIL) also present. For consensus guidelines for the management of cervical cancer screening test results, please see: ?? http://www.asccp.o rg . Electronically signed by: ?Tim León MD Verified: ??07/16/2023 14:44 ??Pathologist Performed at: ??-[facility] Dept. of Pathology, [place] [address] Front Line Supervisor: Huyen Temple MD, AP, ??IA Certificate: [id number] HPV RESULTS HPV16 (Result) ?Negative HPV18 (Result) [...] Clinical Genomics and Advanced Technology (CGAT) at [facility]. ? - Pantera Can, PhD, [facility], Director-CGAT STATEMENT OF ADEQUACY Specimen submitted is satisfactory. Endocervical component present. CLINICAL INFORMATION HPV Option: ?Concurrent HPV and Pap CT/NG Option: ?No Preparation: ? Liquid based Pap Specimen Source: ? Cervical/Endocervi rodrick LMP: ? Hysterectomy: ?No : ?No : ?No I.U.D.: ?No Pelvic Radiation: ?No . CLINICAL INFORMATION Hist Abnl Pap/Biopsy: ?Yes, history of previous abnormal Pap Prior ACUTE CARE NURSE Therapy: ? No Hist of HPV Vaccine: ? No ICD Diagnosis: ? Z12.4 Encounter for screening for malignant neoplasm of cervix Clinical Data, Significant Therapy and Clinical Impression ?? : ?_ This Pap Test has been evaluated with the assistance of the [employer] Pap Test Imaging System. Note: The Pap test is a screening test for cervical cancer with an inherent false-negative rate dependent upon several variables. For further information please contact the [facility] Laboratory. Reference: Leticia BAUTISTA. Track Grinder of Pap Smear Results. In: Wilfrido BS, Andrew JACOBO, ed. The Pap Smear. [place]: Cesar, 2002: 71-77. [facility] 07/06/2023 9:00 AM EST Tiffanie Gardiner CNM PATHOLOGY/CYTOLO GY ORDERABLES [facility] [place] [address] * (ABNORMAL) ACUTE CARE NURSE Cytology Interpretation (07/06/2023 9:00 AM EST) Unified Communications Architect Cytology Interpretation ASC-H(A) [facility] Comment:Unified Communications Architect Cytology Final R eport Endocervical Component Present [facility] AP Specimen 07/06/2023 9:00 AM EST 07/16/2023 2:44 PM EST Tiffanie Gardiner CNM PATHOLOGY/CYTOLO GY ORDERABLES Performing Organization Address City/[facility] [place] [place] [address] * (ABNORMAL) HPV (07/06/2023 9:00 AM EST) HPV16 NEGATIVE NEGATIVE [facility] HPV 18 NEGATIVE NEGATIVE [facility] HPV Other HR POSITIVE(A) NEGATIVE [facility] HPV Interpretation See Comment [facility] Comment: POSITIVE for high-risk HPV* [...] CNM PATHOLOGY/CYTOLO GY ORDERABLES Performing Organization Address City/[facility] Co de Phone Number [facility] [place] [address] documented in this encounter Visit Diagnoses Diagnosis Papanicolaou smear, as part of routine gynecological examination Screening for malignant neoplasm of the cervix Screening examination for STI Encounter for gynecological examination without abnormal finding Routine gynecological examination documented in this encounter Care Teams Heel Finisher Relationship Specialty Start Date End Date None None PCP - General 07/06/23 documented as of this encounter
--- OUTSIDE RECORDS SUMMARY | 2024-02-11 00:53 | XMS_ITS | Referral Summary ---
Author Organization [facility] Address [address] [place] [address] Care Team Providers Care Automobile Appraiser Name Role Phone Jay Taylor MD Primary Care Provider [phone] Encounters Date Type Department Care Team Description 01/04/2024 Lab Requisition [facility] Pathology & Laboratory Medicine - [address] [address] Outr Resulting Lab, Provider from Last 3 Months Social History Tobacco Use Types Packs/Day Years Used Date Smoking Tobacco: Never Assessed Interpersonal Safety Answer Date Record ed Physically Hurt Never 12/10/2019 Verbally Threaten Not on file 12/10/2019 Sex and Gender Information Value Date Recorded Sex Assigned at Not on file Gender Identity Not on file Sexual Orientation Not on file Plan of Treatment Not on file Procedures Procedure Name Priority Date/Time Associated Diagnosis Comments CHLAMYDIA/N. GONORRHOEAE AMPLIFIED NUCLEIC ACID Routine 01/04/2024 11:00 EDT from Last 3 Months Results * CHLAMYDIA/N. GONORRHOEAE AMPLIFIED NUCLEIC ACID (01/04/2024 11:00 EDT) Neisseria gonorrhoeae Result Negative Negative 01/05/2024 12:50 EDT [facility] Chlamydia trachomatis Result Negative Negative 01/05/2024 12:50 EDT [facility] Swab VAGINAL STRUCTURE / Unknown 01/04/2024 11:00 EDT 01/04/2024 22:02 EDT Provider Outr Resulting Lab MICROBIOLOGY - GENERAL ORDERABLES [facility] [address] [place], [place] [address] from Last 3 Months Care Teams Automobile Appraiser Relationship Specialty Start Date End Date Jay Taylor MD [address] [place] [address] PCP - General 09/07/21
--- OUTSIDE RECORDS SUMMARY | 2024-02-11 00:53 | XMS_ITS | Encounter Summary ---
Author Organization [facility] Address [address] [place] [address] Care Team Providers Care Industrial Electrical Engineer Name Role Phone Jay Taylor MD Primary Care Provider [phone] Encounter Details Date Type Department Care Team (Late st Contact Info) Description 09/10/2022 Lab Requisition [facility] Pathology & Laboratory Medicine - [address] [address] Gricelda Myers [address] [place] [address] [place] [address] Encounter for other general examination Social History [...] Date/Time Associated Diagnosis Comments PAP TEST Today 09/09/2022 11:10 EDT Encounter for other general examination HPV DNA DETECTION WITH GENOTYPING, PCR Today 09/09/2022 11:10 EDT Encounter for other general examination documented in this encounter Results * (ABNORMAL) HUMAN PAPILLOMAVIRUS (HPV) DETECTION-HIGH RISK TYPES (09/09/2022 11:10 EDT) HPV other High Risk types, PCR Positive( A) Negative 09/18/2022 17:20 EDT [facility] Comment:E6 OR E7 mRNA from o ne or more types of HPV types 16,18,31,33,35,39,45,51,52,56,58,59,66, and 68 is detected by barrel waterer mediated amplification. High and intermediate risk HPV types are associated with most squamous intraepithelial lesions and cervical cancers. Papanicolaou smear specimen (specimen) CERVIX UTERI STRUCTURE / Unknown 09/09/2022 11:10 EDT 09/17/2022 12:32 EDT Gricelda Myers MICROBIOLOGY - GENER AL ORDERABLES [facility] [address] [place] [address] * PAP TEST (09/09/2022 11:10 EDT) Specimens A. Cervix and/or Endocervix , ThinPrep Imaging System with Manual Evaluation 09/18/2022 17:20 T [facility] Specimen Adequacy Satisfactory for Evaluation - transformation zone component present 09/18/2022 17:20 [facility] General Categorization Negative for intraepithelial lesion or malignancy 09/18/2022 17:20 [facility] Attestation . 09/18/2022 17:20 [facility] at 1720 Clinical History See below 09/19/19 23 17:20 T [facility] HPV The result for the Human Papillomavirus (HPV) Detection-High Risk Types is Positive . E6 OR E7 mRNA from one or more types of HPV types 16,18,31,33,35,39 ,45,51,52,56,58,5 9,66, and 68 is detected by barrel waterer mediated amplification. High and intermediate risk HPV types are associated with most squamous intraepithelial lesions and cervical cancers. Testing was performed on specimen [id number] and was resulted on 09/18/2022 1720 EDT by ARTURO, LAB INSTRUMENT RESULTS IN 09/18/2022 17:20 EDT [facility] Performing Lab [facility] 09/18/2022 17:20 EDT [facility] Scanned Images 09/18/2022 17:20 EDT [facility] Papanicolaou smear specimen (specimen) CERVIX UTERI STRUCTURE / Unknown 09/09/2022 11:10 EDT 09/10/2022 14:48 EDT Gricelda Myers PATHOLOGY ORDERABLES [facility] [address] [place] [address] documented in this encounter Visit Diagnoses Diagnosis Encounter for other general examination documented in this encounter Care Teams Industrial Electrical Engineer Relationship Specialty Start Date End Date Jay Taylor MD [address] [place] [address] PCP - General 09/07/21 documented as of this encounter
--- OUTSIDE RECORDS SUMMARY | 2024-02-11 00:53 | XMS_ITS | Encounter Summary ---
Author Organization [facility] Address [address] [place] [id number] Care Team Providers Care Substation Electrician Name Role Phone Unknown, Provider Primary Care Provider Encounter Details Date Type Department Care Team (Late st Contact Info) Description 03/09/2011 Results Only [facility] Laboratory Services - [facility] [address], [place] [id number] Ángel Bartlett MD [address] [place] [id number] Social History Tobacco Use Types Packs/Day Years Used Date Smoking Tobacco: Never Assessed Sex and Gender Information Value Date Recorded Sex Assigned at Not on file Gender Identity Not on file Sexual Orientation Not on file documented as of this encounter Plan of Treatment Not on file documented as of this encounter Procedures Procedure Name Priority Date/Time Associated Diagnosis Comments SURGICAL PATHOLOGY Routine 03/09/2011 0:00 EDT documented in this encounter Results * SURGICAL PATHOLOGY (03/09/2011 0:00 EDT) Pathology Report: SURGICAL PATHOLOGY REPORT Reports generated via electronic interface contain original data; however they are lacking the format of the original report. Caution should be taken when reading/interpreti ng unformatted reports. Name: ? SHIRA BARNES ? Accession #: ? [id number] ? : ? 1995 (Age: 15) ??F ? Collect Date: ? 03/09/2011 ? Location: ? [facility] ? Receive Date: ? 03/09/2011 ? Provider: ÁNGEL BARTLETT MD Copy to: SEVERO AGUAYO MD ? Final Pathologic Diagnosis: ? A. ?Tonsil, right, tonsillectomy: 1. ?Lymphoid tissue grossly consistent with tonsil. ??Gross only. B. ?Tonsil, left, tonsillectomy: 1. ?Lymphoid tissue grossly consistent with tonsil. ??Gross only. Document reviewed and electronically signed by: YULISA NAVA MD Report ??Date: 03/11/2011 17:44 By the signature above, the attending physician certifies that he/she has personally conducted a gross and/or microscopic examination of the described specimens and rendered or confirmed the above diagnosis. Specimen(s) Received: A. ?Right tonsil B. ? Left tonsil Clinical History: ? Chronic tonsillitis and recurrent acute tonsillitis Gross Description: ? Received in formalin labelled Cameron, Shira and right tonsil is a elizalde-pink, ovoid, unoriented soft tissue measuring 3.0 x 2.7 x 1.5 cm and is surfaced by a elizalde, smooth to wrinkled mucosa. ??The cut surfaces are elizalde-pink with a crypt-like architecture. ??No discrete nodule is present. ??No sections submitted. ??Gross only. Received in formalin labelled CameronTrevah and left tonsil is a elizalde-pink, ovoid, unoriented soft tissue measuring 3.5 x 2.0 x 1.2 cm and is surfaced by a elizalde, smooth to wrinkled mucosa. ??The mucosa is partially disrupted on one aspect. ??Upon sectioning, the cut surfaces are elizalde-pink with a crypt-like architecture. ??No definitive nodule is present. ??No sections submitted. ??Gross only. (Melany Barone)/[facility] End of Report MARISOL QUINTANA 03/09/2011 03/09/2011 16: 58 EDT Ángel Bartlett MD PATHOLOGY ORDERABLES Performing Organization Address City/State/[facility] Co de Phone Number MARISOL QUINTANA [address] [place] [address] documented in this encounter Visit Diagnoses Not on filedocumented in this encounter Care Teams Substation Electrician Relationship Specialty Start Date End Date Unknown, Provider, PCP - General 03/09/11 03/11/11 documented as of this encounter
--- OUTSIDE RECORDS SUMMARY | 2024-02-11 00:53 | XMS_ITS | Encounter Summary ---
Author Organization [facility] [place] [address] Care Team Providers Care Assistant Credit Manager Name Role Phone None Primary Care Provider Unavailabl e Encounter Details Date Type Department Care Team (Late st Contact Info) Description 07/12/2023 Telephone Obstetrics [place] [phone] Tiffanie Gardiner CNM [facility] [place] [address] Social History Tobacco Use Types Packs/Day Years Used Date Smoking Tobacco: Every Day Cigarettes Smokeless Tobacco: Never Comments:Smokes marijuana as well. Sex and Gender Information Value Date Recorded Sex Assigned at Not on file Gender Identity Not on file Sexual Orientation Not on file documented as of this encounter Miscellaneous Notes * Telephone Encounter - Tiffanie Gardiner CNM - 07/12/2023 4:50 PM EST Reviewed STI and vaginitis panel is negative. Kyle Gardiner CNM, ANDREA-LENI, MSN, LIVE TRUCK TECHNICIAN She/her/hers Department of Obstetrics and Gynecology [facility] documented in this encounter Plan of Treatment Upcoming Encounters Date Type Department Care Team (Late st Contact Info) Description 05/08/2024 10:40 AM EST Office Visit Obstetrics [place] [phone] Lucy Hussein, NINA [facility] [place] [address] documented as of this encounter Visit Diagnoses Not on filedocumented in this encounter Care Teams Assistant Credit Manager Relationship Specialty Start Date End Date None None PCP - General 07/06/23 documented as of this encounter
--- OUTSIDE RECORDS SUMMARY | 2024-02-11 00:53 | XMS_ITS | Encounter Summary ---
Author Organization [facility] Address [address] [place] [address] Care Team Providers Care Building Architectural Designer Name Role Phone Emil Swain MD Primary Care Provider Jay Glez MD Primary Care Provider Encounter Details Date Type Department Care Team (Late st Contact Info) Description 08/15/2019 Lab Requisition [facility] Pathology & Laboratory Medicine - [address] [address] Jaylene Villasenor, [address] [place] [phone] Encounter for other general examination Social History [...] Date/Time Associated Diagnosis Comments PAP TEST Today 2019 13:00 EDT Encounter for other general examination documented in this encounter Results * PAP TEST (2019 13:00 EDT) Specimens A. Cervix and/or Endocervix, ThinPrep Imaging System with Manual Evaluation 08/18/2019 11:[address] [facility] Specimen Adequacy Satisfactory for Evaluation - transformation zone component present Scant due to excessive blood 08/18/2019 11:[address] [facility] General Categorization Negative for intraepithelial lesion or malignancy 08/18/2019 11:[address] [facility] Descriptive Diagnosis Reactive cellular changes associated with inflammation present (includes repair). 08/18/2019 11:[address] [facility] Attestation By the signature below, the attending physician certifies that they have personally conducted a gross and/or microscopic examination of the described specimens and rendered or confirmed the above diagnosis. 08/18/2019 11:[address] [facility] at 1158 Educational Comments An additional slide was prepared and evaluated. 08/18/2019 11:[address] [facility] Clinical History SEE ORDER COMMENTS 08/18/2019 11:[address] [facility] Scanned Images 08/18/2019 11:[address] [facility] Papanicolaou smear specimen (specimen) CERVIX UTERI STRUCTURE / Unknown 2019 13:00 EDT 08/15/2019 7:59 EDT Jaylene Villasenor SKEIN STRAIGHTENER PATHOLOGY ORDERABLES [facility] [address] [place] [address] documented in this encounter Visit Diagnoses Diagnosis Encounter for other general examination documented in this encounter Care Teams Building Architectural Designer Relationship Specialty Start Date End Date Emil Swain MD PCP - General 03/12/11 09/06/21 Jay Taylor MD [facility] [place] [address] PCP - General 09/07/21 documented as of this encounter
--- OUTSIDE RECORDS SUMMARY | 2024-02-11 00:53 | XMS_ITS | Encounter Summary ---
Author Organization [facility] Address [address] [place] [address] Care Team Providers Care Eviscerator Name Role Phone Jay Taylor MD Primary Care Provider [phone] Encounter Details Date Type Department Care Team (Late st Contact Info) Description 09/25/2021 Lab Requisition [facility] Pathology & Laboratory Medicine - [address] [address] Gricelda Myers [address] [place] [address] [address] [place] [phone] Encounter for other general examination Social History [...] Priority Date/Time Associated Diagnosis Comments SURGICAL PATHOLOGY Today 09/25/2021 11 :30 EDT Encounter for other general examination documented in this encounter Results * SURGICAL PATHOLOGY (09/25/2021 11:30 EDT) Note to Patient The following pathology results have been interpreted by your pathologist and may be available to you before your health provider has had the opportunity to review them. Please allow time for your provider to receive these results and explore management options, if applicable. [facility] Final Diagnosis A. ENDOCERVIX, CURETTAGE: - Fragments of benign degenerative superficial squamous epithelium. - No evaluable endocervical glands present. B. CERVIX, 6 O'CLOCK, BIOPSY: - Transformation zone tissue with chronic inflammation and reactive changes. 09/29/2021 12:38 [facility] Attestation By the signature below, the attending physician certifies that they have 1) personally conducted a gross and/or microscopic examination of the described specimen(s), and/or personally interpreted the results of laboratory testing of the described specimen(s), and 2) personally rendered or confirmed the above diagnosis. 09/29/2021 12:38 [facility] at 1238 Clinical History ASCUS +HR HPV x 2 09/29/2021 12:38 [facility] Gross Description A. Received in formalin labelled with proper patient identification (initials S, M) and ECC is an aggregate of white material, 0.2 x 0.2 x 0.1 cm. Filtered and entirely submitted in A1. B. Received in formalin labelled with proper patient identification (initials S, M) and cervical Bx 6 o'clock is a elizalde-monterroso tissue with adherent mucus, 0.4 x 0.3 x 0.2 cm. Entirely submitted in B1. KENDY UGALDE(ASCP) 09/26/2021 10:03 09/29/2021 12:38 [facility] Performing Lab [facility] 09/29/2021 12:38 [facility] Scanned Images 09/29/2021 12:38 [facility] Tissue ENTIRE WALL OF CERVIX / Unknown 09/25/2021 11:30 EDT 09/25/2021 21:02 EDT Tissue specimen (specimen) CERVIX UTERI STRUCTURE / Unknown 09/25/2021 11:30 EDT 09/25/2021 21:02 EDT Gricelda Myers PATHOLOGY ORDERABLES [facility] [address] [place] [address] documented in this encounter Visit Diagnoses Diagnosis Encounter for other general examination documented in this encounter Care Teams Eviscerator Relationship Specialty Start Date End Date Jay Taylor [place] [address] PCP - General 09/07/21 documented as of this encounter
--- NOTE | 2024-02-11 06:45 | DI.MAMMO_ITS ---
Exam(s) US BREAST RT LIMITED MG MAMMO DIAGNOSTIC BI EXAM: MG MAMMO DIAGNOSTIC BI CLINICAL HISTORY: Tenderness,rt sided lump 10 oclock, n63.11. COMPARISON: US US BREAST RT LIMITED from 02/11/2024 . Baseline mammogram. TECHNIQUE: Craniocaudal and mediolateral oblique Full Field Digital Mammography views of both breast s with Computer Aided Diagnosis followed by Tomosynthesis and breast ultrasound. FINDINGS: Mammography/Tomosynthesis: Masses/Architectural Distortion: None seen. Microcalcifications: No suspicious pleomorphic-type are seen. Skin Thickening/Nipple Retraction: None. Right breast US: Echotexture: Normal appearance of the glandular tissue. Shadowing: No suspicious foci. Cyst: None. Solid lesions: None seen. Ductal dilation: None. IMPRESSION: 1. No evidence of malignancy is noted. 2. Unless there is more urgent need, follow-up screening mammography is recommended, as per [employer] guidelines. BI-RADS Category 1 - Negative Breast Density - Category B - Scattered areas of fibroglandular density Breast density category C or D implies that the patient has dense breast tissue. Dense breast tissue is very common and is not abnormal but dense breast tissue can make it harder to find cancer on a ma mmogram. Also, dense breast tissue may increase their breast cancer risk. This information about the result of the mammogram report was provided to the patient to raise their awareness. Use this report when you speak with the patient about their risks for breast cancer, which includes their family hist ory. At that time, you may recommend for more screening tests (Ultrasound or MRI) as they might be us eful based on their risk. A negative radiographic report should not delay biopsy if a dominant or clinically suspicious mass is present. Up to ten percent of cancers are not identified on mammography. A negative report may reinforce clinical impression. Adenosis and dense breasts may obscure an underlying neoplasm. False positive reports average 6 to 10%. Patient will receive a letter notifying them of these results.
== END 2024-02-11 00:59 ==
LOC: DI 00:39
PROVIDERS: PCP Nurse Practitioner Adult Health; Visit Provider Nurse Practitioner Adult Health
DX: N63.11 Unspecified lump in the right breast, upper outer quadrant (principal); Z12.31 Encounter for screening mammogram for malignant neoplasm of breast
CPT/HCPCS: 76642; 77062; 77066; G0279

== ENCOUNTER 2024-08-01 10:51 | Emergency (ER) | payer MEDICAID, SELFPAY ==
[2024-08-01 11:00] VITALS: BP 105/75; PULSE 72; RESP 16; TEMP 36.8; O2SAT 97
[2024-08-01 11:03] VITALS: BP 105/75; PULSE 72; RESP 16; TEMP 36.8; O2SAT 97
--- NOTE | 2024-08-01 11:52 | W.ED.GENAD ---
Discharge Plan Disposition Patient Disposition: Home Condition: Stable Discharge Details Clinical Impression: Dental caries Primary Care Provider: Flaquita Bacon ED Provider: Cheryle Vogel Home Meds and New Rx's Prescriptions: New ibuprofen 800 mg tablet 800 mg PO Q8H PRNQty: 30 0RF acetaminophen 500 mg capsule 1,000 mg PO Q6H PRNQty: 30 0RF amoxicillin-pot clavulanate 875-125 mg tablet 1 tab PO BID 7 Days Qty: 14 0RF No Action ibuprofen 600 mg tablet 600 mg PO Q8H PRNQty: 60 0RF Discharge Instructions Instructions: Dental Pain ED Additional Instructions: You were seen in the emergency department today for evaluation of tooth pain and had evidence of dental cavities. There was some evidence of early infection, for which we are starting you on an antibiotic called Augmentin. Please take this medication until it is gone, even if you start to feel better. I have refilled your prescriptions for Tylenol and ibuprofen, please take these medications as prescribed, I do recommend alternating them throughout the day for good pain management, but please do not take more frequently than prescribed to avoid adverse effect. You need to contact your dentist to discuss neck step in workup and management. Please follow-up with your primary care provider in the next few days to discuss this visit and any symptoms that change, worsen, or persist. Thank you for allowing us to be part of your care. HPI General Mode of arrival: ambulatory. Date/Time Provider Initiated Documentation: 08/01/24 11:07. Limitations to Documentation: no limitations. Information obtained by: patient and old records reviewed. HPI Narrative: HPI: This is a 28-year-old female patient with a past medical history significant for dental carry disease who is presenting for evaluation of tooth pain. The patient reports that she intermittently has issues with her teeth quite frequently, is in the process of establishing with a new dental provider given insurance issues. She states that a few days ago she noted worsening pain in her left upper molar, which radiates into her ear and has resulted in significant discomfort. At home she is using Tylenol and ibuprofen with some improvement in her pain, presented today because she is concerned that she is starting to develop an infection. She has not noted any fevers or chills, changes in vision, has been eating and drinking typically for her. She has access to topical anesthetics at home which she has not utilized yet. The patient is otherwise in her normal state of health with no acute concerns today. Exam: Gen: Awake and alert, in no apparent distress HEENT: Non-icteric sclera, EOMs full and without entrapment. TM clear on the left side, no facial swelling or tenderness over the sinus. The patient has evidence of poor dentition, with significant dental ashish disease of tooth 16, and a purulent base at the site of extraction of tooth 15 on the upper left side. I do not note any apical abscesses. Neck: Supple, tender submandibular lymphadenopathy on the left side, mild Lungs: No apparent respiratory distress, normal respiratory effort. CV: Appears well perfused Abdomen: Non-distended MSK: Moves 4 extremities without apparent limitation in ROM Skin: Visualized skin without rashes, cyanosis. Neuro: Normal Gait, no obvious focal deficits or facial asymmetry. Speaks in full, clear sentences. Psych: Appropriate for situation. MDM: This is a 28-year-old female patient presented for evaluation of chest pain. I differential includes but is not limited to dental carry disease, dental infection, no evidence for dental abscess. I certainly considered deep space infection though the patient's physical examination is suggestive against this. Additionally, she is hemodynamically appropriate, fever free, and have a low concern for systemic involvement such as bacteremia or sepsis. ED Course: I think it prudent to start this patient on a course of Augmentin, and I did provide her with refills of prescriptions for Tylenol and ibuprofen. The patient will follow-up with her dental provider for definitive management. At this time, the patient has had a full medical evaluation and is safe for discharge to home. They are hemodynamically stable, ambulatory, and tolerating PO. They are understanding of the follow-up plan and return precautions. They left our facility without incident. Cheryle Vogel MD Related Data Home Medications ?Medication ?Instructions ?Recorded ?Confirmed ibuprofen 600 mg tablet 600 mg PO Q8H PRN #60 tabs 12/20/23 08/01/24 acetaminophen 500 mg capsule 1,000 mg (2 x 500 mg) PO Q6H PRN 08/01/24 #30 caps amoxicillin 875 mg-potassium 1 tab PO BID 7 days #14 tabs 08/01/24 clavulanate 125 mg tablet ibuprofen 800 mg tablet 800 mg PO Q8H PRN #30 tabs 08/01/24 Previous Rx's ?Medication ?Instructions ?Recorded ibuprofen 600 mg tablet 600 mg PO Q8H PRN #60 tabs 12/20/23 acetaminophen 500 mg capsule 1,000 mg (2 x 500 mg) PO Q6H PRN 08/01/24 #30 caps amoxicillin 875 mg-potassium 1 tab PO BID 7 days #14 tabs 08/01/24 clavulanate 125 mg tablet ibuprofen 800 mg tablet 800 mg PO Q8H PRN #30 tabs 08/01/24 Allergies Allergy/AdvReac Type Severity Reaction Status Date / Time codeine Allergy Severe Anaphylaxsi Verified 08/01/24 11:03 s General Stated Complaint: DentalOral LAWRENCE: 4 Course Vital Signs Vital signs: Vital Signs Temperature 36.8 C 08/01/24 11:00 Pulse 72 08/01/24 11:00 Respiratory Rate 16 08/01/24 11:00 Blood Pressure 105/75 08/01/24 11:00 Pulse Oximetry 97 08/01/24 11:00 Temperature 36.8 C 08/01/24 11:03 Pulse 72 08/01/24 11:03 Respiratory Rate 16 08/01/24 11:03 Blood Pressure 105/75 08/01/24 11:03 Pulse Oximetry 97 08/01/24 11:03 Medical Decision Making Quality:SDOH Health Related Social Needs: Health related social needs details N/A PFSH All Active Problems (Updated 08/01/24 @ 11:53 by Cheryle Vogel MD) Dental caries (Acute) Marital problem (Acute ~2022) Low back pain (Chronic) uses THC Nicotine use disorder (Chronic) Started at 13yo; 5-6 cigs/day; thinking about quitting ( has COPD) ASCUS with positive high risk HPV (Acute) [facility] Colpo 09/28, negative Pap 09/29. Medical History (Updated 08/01/24 @ 11:53 by Cheryle Vogel MD) Dysthymic disorder h/o hydroxyzine & fluoxetine History of kidney stones Tinea versicolor chest--RX ketoconazole & resolved Chronic bronchitis Low blood pressure Screen for STD (sexually transmitted disease) Human papillomavirus Vaginal discharge Dental infection (~01/2021) History of ADHD Surgical History Tonsillectomy age 15 Family History (Updated 09/20/23 @ 09:58 by Flaquita Bacon NP) Mother Diabetes Alcohol abuse Brother Asthma Social History Smoking/Tobacco Use Status: Current every day Tobacco Type: cigarettes Tobacco: How many years used: 9 Quit status: considering quitting Second Hand Exposure: No Smoking risk assessment performed?: Yes Alcohol Intake: current Alcohol Intake frequency: holidays/special occasions only Drug use: Daily Substance use type: marijuana Adopted: No Caregiver/Support person: No Foster care: No Household members: family Housing: apartment Number of Children: 2 number of grandchildren: 0 Communication Needs: None Education Level: high school Do you need help understanding health information?: Rarely current occupation: Unemployed Pets and animals: Yes (1) Pets and animals: cat(s) Sexually active: Yes Do you think of yourself as: straight/heterosexual Current gender identity: female What is your relationship status?: How often do you talk on the phone with friends or family?: twice per week How often do you get together with friends or relatives?: once per week How often do you attend cheondoism or jew services?: decline to answer Do you belong to any clubs or organized social groups?: no Panel score (0-1 are the most socially isolated patients): 2 What type of physical activity do you participate in: regular exercise and advised to perform resistance training at least 2x/week Duration: 45-60 minutes/day Frequency: 5-6 times per week Special mike needs: No Seatbelt use: sometimes Helmet use: Yes Helmet use: never Drive intox or ride w/intox sheet pile driver operator: No Do you feel safe at home: Yes Do you feel safe in your relationship?: Yes Female Reproductive History Menstrual control method: other ( has vasectomy) History History 4 Para 3 Hx # Term Pregnancies 3 Multiple births Hx # Pregnancies Ectopic pregnancies AB induced Hx Number of Living Children AB spontaneous 1
[2024-08-01] MEDS: Ketorolac 15 MG/ML VIAL IM (11:58)
[2024-08-01 12:04] VITALS: BP 105/75; PULSE 72; RESP 16; TEMP 36.8; O2SAT 97
== END 2024-08-01 12:04 | disposition home or self-care (01) ==
PROVIDERS: Emergency Provider Emergency Medicine; PCP Nurse Practitioner Adult Health
DX: K08.89 Other specified disorders of teeth and supporting structures (principal); K02.9 Dental caries, unspecified; F17.210 Nicotine dependence, cigarettes, uncomplicated
CPT/HCPCS: 96372; 99284; 99283; J1885

== ENCOUNTER 2024-08-25 20:20 | Emergency (ER) | payer MEDICAID, SELFPAY ==
[2024-08-25 20:25] VITALS: BP 115/75; PULSE 73; RESP 16; TEMP 36.8; O2SAT 92
[2024-08-25 20:33] VITALS: BP 115/75; PULSE 73; RESP 16; TEMP 36.8; O2SAT 92
[2024-08-25 21:21] VITALS: TEMP 36.2
[2024-08-25 21:51] VITALS: BP 110/74; PULSE 64; O2SAT 96
[2024-08-25 22:25] VITALS: PULSE 65; RESP 18; O2SAT 95
--- NOTE | 2024-08-26 16:42 | W.ED.GENAD ---
Discharge Plan Disposition Patient Disposition: Home Condition: Stable Discharge Details Clinical Impression: Pain, dental Primary Care Provider: Flaquita Bacon ED Provider: Karen Reyna Home Meds and New Rx's Prescriptions: New tramadol 50 mg tablet 50 mg PO Q8H PRNQty: 6 0RF Continued ibuprofen 600 mg tablet 600 mg PO Q8H PRNQty: 60 0RF acetaminophen 500 mg capsule 1,000 mg PO Q6H PRNQty: 30 0RF Discharge Instructions Instructions: Dental Pain (DC) Additional Instructions: You have epoxy on your tooth, if you grind this will come off, try to do your best not to grind your teeth take ibuprofen and Tylenol as needed for pain Follow-up with dentist at your appointment on Wednesday, I am giving you a very small amount of opiate pain medication (please take this sparingly as it is addictive) stay away from extremes of temperature follow-up with dentist at your appointment on Wednesday return earlier should you have new or worsening complaints Referrals: Flaquita Bacon, [facility] [Primary Care Provider] - 3 days Discharge Data Discharge Date/Time-TO BE ENTERED AT DEPARTURE: 08/25/24 22:26 HPI General Date/Time Provider Initiated Documentation: 08/25/24 20:21. HPI Narrative: The patient is a 29-year-old female with left upper abdominal pain for one week, worsening despite antibiotics. She has been taking ibuprofen and Tylenol but is having trouble sleeping due to the pain. No fever, chills, or difficulty swallowing. Dentist appointment on Wednesday. No chance of . Related Data Home Medications ?Medication ?Instructions ?Recorded ?Confirmed ibuprofen 600 mg tablet 600 mg PO Q8H PRN #60 tabs 12/20/23 08/25/24 acetaminophen 500 mg capsule 1,000 mg (2 x 500 mg) PO Q6H PRN 08/01/24 08/25/24 #30 caps tramadol 50 mg tablet 50 mg PO Q8H PRN #6 tabs 08/25/24 Previous Rx's ?Medication ?Instructions ?Recorded ibuprofen 600 mg tablet 600 mg PO Q8H PRN #60 tabs 12/20/23 acetaminophen 500 mg capsule 1,000 mg (2 x 500 mg) PO Q6H PRN 08/01/24 #30 caps tramadol 50 mg tablet 50 mg PO Q8H PRN #6 tabs 08/25/24 Allergies Allergy/AdvReac Type Severity Reaction Status Date / Time codeine Allergy Severe Anaphylaxsi Verified 08/01/24 11:03 s General Stated Complaint: DentalOral LAWRENCE: 4 Course Vital Signs Vital signs: Vital Signs Temperature 36.8 C 08/25/24 20:25 Pulse 73 08/25/24 20:25 Respiratory Rate 16 08/25/24 20:25 Blood Pressure 115/75 08/25/24 20:25 Pulse Oximetry 92 08/25/24 20:25 Temperature 36.2 C L 08/25/24 21:21 Temperature Source Oral 08/25/24 20:33 Pulse 65 08/25/24 22:25 Pulse Rhythm Regular 08/25/24 21:51 Pulse Strength Normal 08/25/24 21:51 Respiratory Rate 18 08/25/24 22:25 Blood Pressure 110/74 08/25/24 21:51 Blood Pressure Mean 86 08/25/24 21:51 Blood Pressure Position Sitting 08/25/24 21:51 Pulse Oximetry 95 08/25/24 22:25 Oxygen Delivery Method Room Air 08/25/24 21:51 Oxygen Flow Rate 0 08/25/24 21:51 Pain Level 10 08/25/24 21:51 Medical Decision Making Procedure: Dycal placed over teeth 14 and 15. Patient tolerated procedure well with marked symptom improvement. Initial Assessment: 29-year-old female presents with left upper abdominal pain, started a week ago, worse after finishing antibiotics. Denies fever, chills, difficulty swallowing, and . Taking ibuprofen and Tylenol, trouble sleeping due to pain. Alert and oriented, acute distress, holding left side of face. Dental fractures noted to 14 and 15 with exposed James. No evidence of deep space infection. Uvula midline, oropharynx patent. TMs clear bilaterally. ED Course: - Dical placed overlying tooth #14 and 15, marked improvement in symptoms. - Given three tabs of morphine for nighttime pain. - No indication for additional antibiotics. - Return precautions reviewed, patient expressed understanding. Final Assessment: Dental fractures with exposed [place], treated with Dical placement, resulting in marked symptom improvement. Pain management with morphine for nighttime use. No additional antibiotics needed. Return precautions reviewed. Clinical Impression: - Left upper abdominal pain - No Emmanuel's angina Disposition: - Follow-Up: Dentist appointment on Wednesday. Quality:SDOH Health Related Social Needs: Health related social needs details N/A PFSH All Active Problems (Updated 08/25/24 @ 22:09 by KENDY Castanon) Pain, dental (Acute) Dental caries (Acute) Marital problem (Acute ~2022) Low back pain (Chronic) uses THC Nicotine use disorder (Chronic) Started at 13yo; 5-6 cigs/day; thinking about quitting ( has COPD) ASCUS with positive high risk HPV (Acute) [facility] [place] [facility] [place], negative Pap 09/29. Medical History (Updated 08/25/24 @ 22:09 by KENDY Castanon) Dysthymic disorder h/o hydroxyzine & fluoxetine History of kidney stones Tinea versicolor chest--RX ketoconazole & resolved Chronic bronchitis Low blood pressure Screen for STD (sexually transmitted disease) Human papillomavirus Vaginal discharge Dental infection (~01/2021) History of ADHD Surgical History Tonsillectomy age 15 Family History (Updated 09/20/23 @ 09:58 by Flaquita Bacon NP) Mother Diabetes Alcohol abuse Brother Asthma Social History Smoking/Tobacco Use Status: Current every day Tobacco Type: cigarettes Tobacco: How many years used: 9 Quit status: considering quitting Second Hand Exposure: No Smoking risk assessment performed?: Yes Alcohol Intake: current Alcohol Intake frequency: holidays/special occasions only Drug use: Daily Substance use type: marijuana Adopted: No Caregiver/Support person: No Foster care: No Household members: family Housing: apartment Number of Children: 2 number of grandchildren: 0 Communication Needs: None Education Level: high school Do you need help understanding health information?: Rarely current occupation: Unemployed Pets and animals: Yes (1) Pets and animals: cat(s) Sexually active: Yes Do you think of yourself as: straight/heterosexual Current gender identity: female What is your relationship status?: How often do you talk on the phone with friends or family?: twice per week How often do you get together with friends or relatives?: once per week How often do you attend adventism or congregation services?: decline to answer Do you belong to any clubs or organized social groups?: no Panel score (0-1 are the most socially isolated patients): 2 What type of physical activity do you participate in: regular exercise and advised to perform resistance training at least 2x/week Duration: 45-60 minutes/day Frequency: 5-6 times per week Special mike needs: No Seatbelt use: sometimes Helmet use: Yes Helmet use: never Drive intox or ride w/intox buggy driver: No Do you feel safe at home: Yes Do you feel safe in your relationship?: Yes Female Reproductive History Menstrual control method: other ( has vasectomy) History History 4 Para 3 Hx # Term Pregnancies 3 Multiple births Hx # Pregnancies Ectopic pregnancies AB induced Hx Number of Living Children AB spontaneous 1 PAWSS Have you Been Recently Intoxicated or Drunk Within the Last 30 days?: No Have you Ever Experienced Previous Episodes of Alcohol Withdrawal?: No Have you ever Experienced Withdrawal Seizures?: No Have you ever Experienced Delirium Tremens(DT)s?: No Have you ever undergone Alcohol Rehabilitation Treatment (i.e, inpt ot outpatient treatment programs)?: No Have you ever Experienced Blackouts?: No Have you ever Combined Alcohol with other Downers within the last 90 days?: No Have you ever Combined Alcohol with any other Substance of Abuse during the last 90 days?: No Positive Blood Alcohol level on Presentation? [PCS.BAL]: No Evidence of Increased Autonomic Activity (i.e. HR>120, tremor, sweating, agitation, nausea)?: No Result: 0
== END 2024-08-25 22:26 | disposition home or self-care (01) ==
PROVIDERS: Emergency Provider Physician Assistant; PCP Nurse Practitioner Adult Health
DX: S02.5XXA Fracture of tooth (traumatic), initial encounter for closed fracture (principal); X58.XXXA Exposure to other specified factors, initial encounter
CPT/HCPCS: 99283

== ENCOUNTER 2024-09-21 10:57 | Outpatient (REF) | payer MEDICAID, SELFPAY ==
[2024-09-22 11:11] LABS: Chlamydia Result Negative (Negative); GC Result Negative (Negative)
== END 2024-09-21 10:58 | disposition home or self-care (01) ==
LOC: LBN 10:57
PROVIDERS: PCP Nurse Practitioner Adult Health; Visit Provider Nurse Practitioner Adult Health
DX: Z11.3 Encounter for screening for infections with a predominantly sexual mode of transmission (principal)
CPT/HCPCS: 87491; 87591; 87480; 87510; 87660

== ENCOUNTER 2024-09-22 01:38 | Outpatient (CLI) | payer MEDICAID, SELFPAY ==
[2024-09-22 14:19] LABS: Anion Gap 7.3 mmol/L (3-11); BUN 14 mg/dL (7-18); CO2 26.7 mmol/L (21.0-32.0); CREATININE 0.7 mg/dL (0.55-1.02); Calcium 9.2 mg/dL (8.5-10.1); Chloride 104 mmol/L (98-107); Cholesterol 141 mg/dL (<200); Estimated GFR 119.99 (mL/min/1.73m2); Glucose 90 mg/dL (74-106); HDL Cholesterol 56 mg/dL (>or=50); Potassium 3.8 mmol/L (3.5-5.1); Sodium 138 mmol/L (136-145)
[2024-09-22 14:31] LABS: Triglyceride <25 mg/dL (<150)
[2024-09-22 14:42] LABS: LDL CHOLESTEROL 83 mg/dL (<100)
[2024-09-24 09:30] LABS: HIV-1/2 Ag & Ab Screen Negative (Negative)
[2024-09-25 10:54] LABS: Hepatitis C Ab w Rflx HCV PCR Negative (Negative)
== END 2024-09-22 01:39 | disposition home or self-care (01) ==
PROVIDERS: PCP Nurse Practitioner Adult Health; Referring Provider Nurse Practitioner Adult Health; Visit Provider Nurse Practitioner Adult Health
DX: Z13.1 Encounter for screening for diabetes mellitus (principal); Z13.220 Encounter for screening for lipoid disorders; Z11.4 Encounter for screening for human immunodeficiency virus [HIV]; Z11.59 Encounter for screening for other viral diseases; N89.8 Other specified noninflammatory disorders of vagina; E04.9 Nontoxic goiter, unspecified
CPT/HCPCS: 36415; 80048; 80061; 83721; 86803; 87389; 84443

== ENCOUNTER 2025-03-15 15:04 | Outpatient (REF) | payer MEDICAID, SELFPAY ==
[2025-03-19 11:55] LABS: Chlamydia Result Negative (Negative); GC Result Negative (Negative)
== END 2025-03-15 15:05 | disposition home or self-care (01) ==
LOC: LBN 15:04
PROVIDERS: PCP Nurse Practitioner Adult Health; Visit Provider Nurse Practitioner Adult Health
DX: Z11.3 Encounter for screening for infections with a predominantly sexual mode of transmission (principal)
CPT/HCPCS: 87491; 87591; 87480; 87510; 87660

== ENCOUNTER 2025-05-08 18:07 | Emergency (ER) | payer MEDICAID, SELFPAY ==
[2025-05-08 18:09] VITALS: BP 114/77; PULSE 63; RESP 20; TEMP 36.7; O2SAT 97
[2025-05-08 18:11] VITALS: BP 114/77; PULSE 63; RESP 20; TEMP 36.7; O2SAT 97
--- NOTE | 2025-05-08 18:24 | W.ED.GENAD ---
Discharge Plan Disposition Patient Disposition: Home Condition: Stable Discharge Details Clinical Impression: Hyperemesis arising during Primary Care Provider: Flaquita Bacon ED Provider: Mitra Smith Home Meds and New Rx's Prescriptions: New metoclopramide HCl [Reglan] 5 mg tablet 5 mg PO QACHS PRN (Reason: nausea and vomiting) Qty: 10 0RF Rx Instructions: Take one tablet before meals and at bedtime as needed for nausea and vomiting ondansetron 4 mg tablet,disintegrating 4 mg PO Q8H PRN (Reason: nausea and vomiting) 4 Days Qty: 9 0RF Rx Instructions: Take 1 tablet up to 3 times daily as needed for nausea and vomiting 20 minutes prior to meals. No Action folic acid 1 mg tablet 1 mg PO DAILY Qty: 90 2RF Rx Instructions: For docusate sodium [Colace] 100 mg capsule 100 mg PO BID Qty: 60 3RF ibuprofen 600 mg tablet 600 mg PO Q8H PRNQty: 60 0RF acetaminophen 500 mg capsule 1,000 mg PO Q6H PRNQty: 30 0RF Discharge Instructions Instructions: Morning Sickness ED Additional Instructions: No evidence of urinary tract infection however you do appear to be dehydrated. Your potassium was slightly low at 3.3. Please increase foods with high potassium content such as bananas over the next couple of days. Please continue taking vitamins. Take the nausea medication 20 to 30 minutes before eating or drinking anything as directed. The Zofran or ondansetron is dissolvable you may take 1 of those as directed. Please try to push oral fluids and Gatorade or similar, small frequent meals crackers brenda and lemon. Follow up with [facility]/primary care provider in 3-5 days. Return to ED sooner if any worsening or concerns. Thank you for allowing us to care for you today. Stand Alone Forms: Portal Information Referrals: [facility] [Provider Group] - 3 days Flaquita Bacon, [facility] [Primary Care Provider, Medicine] - 5 days Clinical Impression: Hyperemesis arising during HPI General Mode of arrival: ambulatory. Date/Time Provider Initiated Documentation: 05/08/25 18:12. Limitations to Documentation: no limitations. Information obtained by: patient, RN notes reviewed and old records reviewed. HPI Narrative: 29 year old female who is 7 weeks presents with 2 days of vomiting and reports this am awoke with a 101 fever. Also endorses diarrhea. Denies throat pain, ear pain or other associated symptoms. She reports she has only urinated once today. This is Related Data Home Medications ?Medication ?Instructions ?Recorded ?Confirmed ibuprofen 600 mg tablet 600 mg PO Q8H PRN #60 tabs 12/20/23 05/08/25 Held on 05/08/25. Instructions: acetaminophen 500 mg capsule 1,000 mg (2 x 500 mg) PO Q6H PRN 08/01/24 05/08/25 #30 caps folic acid 1 mg tablet 1 mg PO DAILY #90 tabs 04/23/25 05/08/25 docusate sodium 100 mg capsule 100 mg PO BID #60 caps 05/07/25 05/08/25 (Colace) metoclopramide HCl 5 mg tablet 5 mg PO QACHS PRN nausea and 05/08/25 (Reglan) vomiting #10 tabs ondansetron 4 mg disintegrating 4 mg PO Q8H PRN nausea and 05/08/25 tablet vomiting 4 days #9 tabs Previous Rx's ?Medication ?Instructions ?Recorded ibuprofen 600 mg tablet 600 mg PO Q8H PRN #60 tabs 12/20/23 Held on 05/08/25. Instructions: acetaminophen 500 mg capsule 1,000 mg (2 x 500 mg) PO Q6H PRN 08/01/24 #30 caps folic acid 1 mg tablet 1 mg PO DAILY #90 tabs 04/23/25 docusate sodium 100 mg capsule 100 mg PO BID #60 caps 05/07/25 (Colace) metoclopramide HCl 5 mg tablet 5 mg PO QACHS PRN nausea and 05/08/25 (Reglan) vomiting #10 tabs ondansetron 4 mg disintegrating 4 mg PO Q8H PRN nausea and 05/08/25 tablet vomiting 4 days #9 tabs Allergies Allergy/AdvReac Type Severity Reaction Status Date / Time codeine Allergy Severe Anaphylaxsi Verified 05/08/25 18:13 s General Stated Complaint: Fever LAWRENCE: 3 Review of Systems All systems reviewed & are unremarkable except as noted in HPI and below Constitutional Constitutional: Reports fever(s) Gastrointestinal Gastrointestinal: Reports as per HPI, Reports diarrhea, Reports nausea and Reports vomiting Exam Narrative Exam Narrative: Constitutional: Alert and oriented x3. Appears stated age. Normal body habitus. Head: Normocephalic, no trauma. Eyes: Pupils PERRL, Red reflex noted, EOM's intact. Eyelids symmetrical without lesions, discharge, or swelling. ENT: Bilateral TM's WNL, External ear normal to inspection, no mastoid TTP, swelling, or erythema, Nasal turbinates WNL, no nasal discharge. Normal dentition, Posterior pharynx WNL, no exudate. Chest: RRR, Normal S1, S2, distal pulses intact. Resp: Lungs clear to auscultation bilaterally, no wheezes, rales, or rhonchi. Abdomen: Soft, non-distended, Normoactive bowel sounds all 4 quads. Musculoskeletal: Normal gait, Moves all 4 extremities without difficulty. Skin: No suspicious rashes or lesions. Capillary refill less than 2 sec. Neurologic: Cranial nerves II-XII intact. Alert and oriented x 3. Motor: No deficits noted. Sensory: Intact bilaterally all 4 extremities. Hematologic/Lymphatic: No ecchymosis, no lymphadenopathy. Course Vital Signs Vital signs: Vital Signs Temperature 36.7 C 05/08/25 18:09 Pulse 63 05/08/25 18:09 Respiratory Rate 20 05/08/25 18:09 Blood Pressure 114/77 05/08/25 18:09 Pulse Oximetry 97 05/08/25 18:09 Temperature 36.7 C 05/08/25 18:11 Pulse 63 05/08/25 18:11 Respiratory Rate 20 05/08/25 18:11 Blood Pressure 114/77 05/08/25 18:11 Blood Pressure Position Sitting 05/08/25 18:11 Pulse Oximetry 97 05/08/25 18:11 Oxygen Delivery Method Room Air 05/08/25 18:11 Oxygen Flow Rate 0 05/08/25 18:11 Medical Decision Making 29 year old female who is 7 weeks presents with 2 days of vomiting and reports this am awoke with a 101 fever. Also endorses diarrhea. Denies throat pain, ear pain or other associated symptoms. She reports she has only urinated once today. This is cbc, cmp, mag, UA, fluvid ordered one liter NS and 10mg Reglan IV. On patient reevaluation she reports feeling somewhat better after a liter of fluid does report increased stomach acid is bothering her. Pepcid 20 mg IVP ordered. Urine shows no evidence of UTI but greater than 160 ketones, will send with Zofran ODT and a prescription for Reglan and Zofran. Will instruct on PO rehydration and strict return instructions. BP upon discharge slightly soft at 96/54 she feels ok will be discharged with SO with home care and strict return instructions. This text was generated using [employer] dictation system, please disregard any oddities of phrase or misspellings. Patient tolerating gatorade prior to discharge. Lab Data Lab results reviewed: Yes I reviewed the patient's lab results. Labs: Laboratory Tests Range/Units 05/08/25 05/08/25 18:37 18:43 WBC (4.4-10.8) 10^3/uL 9.88 RBC (3.93-5.22) 10^6/uL 4.60 Hgb (11.2-15.7) g/dL 13.4 Hct (36.0-46.0) % 39.0 MCV (80-95) fL 85 MCH (27.0-33.0) pg 29.1 MCHC (32.0-36.0) % 34.4 RDW (11.7-14.6) % 11.9 Plt Count (130-400) 10^3/uL 227 MPV (8.0-11.0) fL 10.0 Immature Gran % % 0.3 Neutrophils % % 61.5 Lymphocytes % % 28.3 Monocytes % % 9.0 Eosinophils % % 0.4 Basophils % % 0.5 Nucleated RBC % (0.0-0.3) % 0.0 Absolute Neutrophils (1.2-6.7) 10^3/uL 6.07 Absolute Lymphocytes (1.2-3.4) 10^3/uL 2.80 Absolute Monocytes (0.1-0.8) 10^3/uL 0.89 H Absolute Eosinophils (0.0-0.7) 10^3/uL 0.04 Absolute Basophils (0.0-0.2) 10^3/uL 0.05 Sodium (136-145) mmol/L 137 Potassium (3.5-5.1) mmol/L 3.3 L Chloride (98-107) mmol/L 104 Carbon Dioxide (20.0-31.0) mmol/L 24.2 Anion Gap (3-11) mmol/L 8.8 BUN (9-23) mg/dL 9 Creatinine (0.55-1.02) mg/dL 0.55 Est GFR (CKD-EPI 2020) (mL/min/1.73m2) 130.02 Glucose (74-106) mg/dL 90 Calcium (8.3-10.6) mg/dL 9.1 Magnesium (1.6-2.6) mg/dL 1.7 Total Bilirubin (0.2-1.2) mg/dL 0.8 AST (<34) U/L 21 ALT (10-49) U/L 24 Alkaline Phosphatase (46-116) U/L 65 Total Protein (5.7-8.2) g/dL 7.2 Albumin (3.2-5.0) g/dL 4.6 COVID-19 Source Nasopharynx SARS-CoV-2 (PCR) (Negative) Negative Influenza Type A (PCR) (Negative) Negative Influenza Type B (PCR) (Negative) Negative RSV (PCR) (Negative) Negative Quality:SDOH Health Related Social Needs: Health related social needs details N/A PFSH All Active Problems (Updated 05/08/25 @ 20:07 by Mitra Smith NP) Hyperemesis arising during (Acute) (Acute) Low back pain (Chronic) uses THC Nicotine use disorder (Chronic) Started at 13yo; 5-6 cigs/day; thinking about quitting ( has COPD) ASCUS with positive high risk HPV (Acute) [facility] [place] [employer] Colpo 09/28, negative Pap 09/29. Medical History Marital problem (~2022) Dysthymic disorder h/o hydroxyzine & fluoxetine History of kidney stones Tinea versicolor chest--RX ketoconazole & resolved Chronic bronchitis Low blood pressure Screen for STD (sexually transmitted disease) Human papillomavirus Vaginal discharge Dental infection (~01/2021) History of ADHD Surgical History H/O tooth extraction (~08/30/24) Tonsillectomy age 15 Family History Mother Diabetes Alcohol abuse Brother Asthma Social History Smoking/Tobacco Use Status: Current every day Tobacco Type: cigarettes Tobacco: How many years used: 9 Quit status: considering quitting Second Hand Exposure: No Smoking risk assessment performed?: Yes Alcohol Intake: current Alcohol Intake frequency: holidays/special occasions only Drug use: Daily Substance use type: marijuana Adopted: No Caregiver/Support person: No Foster care: No Household members: spouse and children Housing: apartment Number of Children: 2 number of grandchildren: 0 Communication Needs: None Education Level: high school Do you need help understanding health information?: Rarely current occupation: [employer] Pets and animals: Yes (1) Pets and animals: cat(s) Sexually active: Yes Do you think of yourself as: straight/heterosexual Current gender identity: female What is your relationship status?: How often do you talk on the phone with friends or family?: three or more times per week How often do you get together with friends or relatives?: once per week How often do you attend yarsanism or latter-day services?: decline to answer Do you belong to any clubs or organized social groups?: no Panel score (0-1 are the most socially isolated patients): 2 What type of physical activity do you participate in: walking, regular exercise and other Details: Lifting things at work Duration: 45-60 minutes/day Frequency: 5-6 times per week Special mike needs: No Seatbelt use: sometimes Helmet use: Yes (No Reason) Helmet use: never Drive intox or ride w/intox chuck wagon driver: No Do you feel safe at home: Yes Do you feel safe in your relationship?: Yes Victim of physical abuse: No Victim of emotional abuse: No Victim of sexual abuse: No Would you like helpful sources: No Female Reproductive History Menstrual control method: other ( has vasectomy) History History 4 Para 3 Hx # Term Pregnancies 3 Multiple births Hx # Pregnancies Ectopic pregnancies AB induced Hx Number of Living Children AB spontaneous 1 PAWSS Have you Been Recently Intoxicated or Drunk Within the Last 30 days?: No Have you Ever Experienced Previous Episodes of Alcohol Withdrawal?: No Have you ever Experienced Withdrawal Seizures?: No Have you ever Experienced Delirium Tremens(DT)s?: No Have you ever undergone Alcohol Rehabilitation Treatment (i.e, inpt ot outpatient treatment programs)?: No Have you ever Experienced Blackouts?: No Have you ever Combined Alcohol with other Downers within the last 90 days?: No Have you ever Combined Alcohol with any other Substance of Abuse during the last 90 days?: No Positive Blood Alcohol level on Presentation? [PCS.BAL]: No Evidence of Increased Autonomic Activity (i.e. HR>120, tremor, sweating, agitation, nausea)?: No Result: 0
[2025-05-08 18:45] LABS: Abs Immature Grans 0.03 10^3/uL (0.0-0.06); HCT 39.0 % (36.0-46.0); HGB 13.4 g/dL (11.2-15.7); Immature Grans % 0.3 %; MCH 29.1 pg (27.0-33.0); MCHC 34.4 % (32.0-36.0); MCV 85 fL (80-95); MPV 10.0 fL (8.0-11.0); Platelet Count 227 10^3/uL (130-400); RBC 4.60 10^6/uL (3.93-5.22); RDW 11.9 % (11.7-14.6); RDW-SD 36.9 fL; WBC 9.88 10^3/uL (4.4-10.8)
[2025-05-08] MEDS: Metoclopramide 10 MG/2 ML VIAL IVP (18:51)
[2025-05-08] MEDS: Normal Saline 1,000 ML 1000 ML IV (18:51)
[2025-05-08 19:04] LABS: ALT 24 U/L (10-49); AST 21 U/L (<34); Albumin 4.6 g/dL (3.2-5.0); Alkaline Phosphatase 65 U/L (46-116); Anion Gap 8.8 mmol/L (3-11); BUN 9 mg/dL (9-23); Bilirubin, Total 0.8 mg/dL (0.2-1.2); CO2 24.2 mmol/L (20.0-31.0); Calcium 9.1 mg/dL (8.3-10.6); Chloride 104 mmol/L (98-107); Glucose 90 mg/dL (74-106); Magnesium 1.7 mg/dL (1.6-2.6); Potassium 3.3 mmol/L (3.5-5.1); Sodium 137 mmol/L (136-145); Total Protein 7.2 g/dL (5.7-8.2)
[2025-05-08 19:23] LABS: COVID-19 PCR Negative (Negative); RSV PCR Negative (Negative)
[2025-05-08] MEDS: Famotidine 20 MG/2 ML VIAL IVP (19:32)
[2025-05-08 20:24] LABS: Glucose Negative (Negative)
[2025-05-08 20:38] LABS: C & S Indicated? No; RBC 0-2 HPF (0-2); WBC Negative HPF (0-5)
[2025-05-08 20:50] VITALS: BP 96/54; PULSE 65; RESP 16; TEMP 37.8; O2SAT 99
== END 2025-05-08 20:53 | disposition home or self-care (01) ==
PROVIDERS: Emergency Provider Registered Nurse Emergency; PCP Nurse Practitioner Adult Health
DX: O21.0 Mild hyperemesis gravidarum (principal); Z3A.01 Less than 8 weeks gestation of pregnancy
CPT/HCPCS: 36415; 80053; 87637; 96361; 96374; 96375; 99284; 81003; 81015; 83735; 85025; 99283; J2765